=== PATIENT | female | born 1960 | race Two or more races ===

== ENCOUNTER → 2024-07-10 | Outpatient (CLI) | payer MEDICARE, MEDICAID, SELFPAY ==
--- NOTE | 2024-07-10 15:58 | XR_ITS ---
Examination: Duplex scan of the lower extremity, unilateral left Date and time of exam: July 10, 2024 1604 hours INDICATIONS: Left leg foot swelling and pain beginning 4 days ago Technique: Duplex scan of the extremity veins using B-mode/grayscale imaging and Doppler spectral analysis and color flow Attention is directed to internal echogenicity, compression and augmentation involving these veins, color flow assessment, spectral analysis Findings: Major deep venous structures in the extremity demonstrate normal course and caliber. There is no evidence of deep vein thrombosis. Normal color flow and spectral analysis Impression: Negative for DVT..
== END | disposition home or self-care (01) ==
LOC: SDIM 15:46
PROVIDERS: PCP Physician Assistant; Referring Provider Physician Assistant; Visit Provider Physician Assistant
DX: R22.42 Localized swelling, mass and lump, left lower limb (principal)
CPT/HCPCS: 93971

== ENCOUNTER 2024-07-19 07:50 | Emergency (ER) | payer MEDICARE, MEDICAID, SELFPAY ==
--- NOTE | 2024-07-19 08:04 | PD.EDANKLE ---
Lower Extremity Injury RME/HPI General Chief Complaint: Ankle/Foot Injury Stated Complaint: Swollen left foot X 10 days Time Seen by Provider: 07/19/24 08:03 Source: patient Arrival date/time: 07/19/24 07:50 63-year-old female with a history of type 2 diabetes, presents to the emergency room with a chief complaint of swelling to the left foot x 10 days. Mode of arrival: ambulatory Limitations: no limitations Related Data Home Medications ?Medication ?Instructions ?Recorded ?Confirmed allopurinol 100 mg tablet 100 mg PO BID 05/15/20 05/15/20 gabapentin 600 mg tablet 600 mg PO BID 05/15/20 05/15/20 insulin glargine 100 unit/mL (3 50 unit subcut BID 05/15/20 05/15/20 mL) subcutaneous pen (Basaglar KwikPen U-100 Insulin) meclizine 25 mg tablet 25 mg PO BID PRN Dizziness 05/15/20 05/15/20 metformin 1,000 mg tablet 1,000 mg PO BID 05/15/20 05/15/20 Previous Rx's ?Medication ?Instructions ?Recorded acetaminophen 325 mg tablet (Mapap 650 mg (2 x 325 mg) PO Q6H PRN 05/16/20 (acetaminophen)) Fever >101.5 #30 tabs dexamethasone 6 mg tablet 6 mg PO QDAY #8 tabs 05/16/20 promethazine-DM 6.25 mg-15 mg/5 mL 5 ml PO Q4HR PRN Cough #300 mL 05/16/20 oral syrup sulfamethoxazole 800 1 tab PO BID #14 tabs 07/19/24 mg-trimethoprim 160 mg tablet (Bactrim DS) Allergies Allergy/AdvReac Type Severity Reaction Status Date / Time No Known Allergies Allergy Verified 07/19/24 07:55 Review of Systems Review of Systems Systems Reviewed: All systems reviewed, normal except as documented Constitutional Constitutional: Reports system reviewed and no additional complaints, except as documented, Denies fatigue, Denies fever(s), Denies headache(s) and Denies weakness Eyes Eyes: Reports system reviewed and no additional complaints, except as documented, Denies blurry vision and Denies change in vision ENT Ears, Nose, Mouth, and Throat: Reports system reviewed and no additional complaints, except as documented, Denies otalgia, Denies headache(s), Denies nasal congestion, Denies throat swelling and Denies vertigo Cardiovascular Cardiovascular: Reports system reviewed and no additional complaints, except as documented, Denies chest pain, Denies dyspnea and Denies dyspnea on exertion Respiratory Respiratory: Reports system reviewed and no additional complaints, except as documented, Denies chest congestion, Denies cough, Denies dyspnea, Denies dyspnea on exertion and Denies wheezing Gastrointestinal Gastrointestinal: Reports system reviewed and no additional complaints, except as documented, Denies abdominal pain, Denies cramping, Denies nausea and Denies vomiting Genitourinary Genitourinary: Reports system reviewed and no additional complaints, except as documented Musculoskeletal Musculoskeletal: Reports system reviewed and no additional complaints, except as documented and Denies back pain Integumentary/Breasts Skin/Breast: Reports system reviewed and no additional complaints, except as documented and Reports wounds (Swelling to the left foot) Neurologic Neurologic: Reports system reviewed and no additional complaints, except as documented, Denies confusion, Denies headache(s), Denies lack of coordination, Denies vertigo and Denies weakness Psychiatric Psychiatric: Reports system reviewed and no additional complaints, except as documented, Denies anxiety, Denies confusion, Denies depression, Denies paranoia, Denies suicidal ideation and Denies tactile hallucinations Endocrine Endocrine: Reports system reviewed and no additional complaints, except as documented and Denies fatigue Hematologic/Lymphatic Hematologic/Lymphatic: Reports system reviewed and no additional complaints, except as documented and Denies lymphadenopathy Allergic/Immunologic Allergic/Immunologic: Reports system reviewed and no additional complaints, except as documented, Denies throat swelling, Denies urticaria and Denies wheezing Past Medical History Past Medical History NEUROLOGIC: Negative Neurological Disorders or Seizures CARDIAC: Positive Cardiac Disorders, Hypercholesterolemia and Hypertension; Negative Congestive Heart Failure or Edema RESPIRATORY: Negative Chronic Obstructive Pulmonary Disease (COPD) GASTROINTESTINAL: Positive Gastrointestinal Disorders, Gastroesophageal Reflux Disease and Obesity GENITOURINARY: Negative Genitourinary Disorders or Renal Disease REPRODUCTIVE: Positive Endometriosis and Previous Pregnancies MUSCULOSKELETAL: Positive Musculoskeletal Disorders, Arthritis and Gout ENDOCRINE: Positive Endocrine Disorders and Diabetes Mellitus Type 2; Negative Diabetes Mellitus Type 1 or Hypothyroidism HEMATOLOGIC: Positive Anemia; Negative Blood Disorders or Clotting Problems OTHER HISTORY: Positive Shingles and Blood Transfusions; Negative Hospitalization, Autoimmune Disease, Falls, Blood Transfusion Reaction, Anesthesia Reactions or Cancer Family History FAMILY HISTORY: Negative Family Psychiatric Problems, Family Respiratory Disorders, Family Cardiac Disorders, Family Gastrointestinal Problems, Family Cancer, Family Surgery or Family Anesthesia Reaction Social History SMOKING STATUS: Never smoker SUBSTANCE USE: does not use ED Exam General Limitations: Present no limitations General appearance: Present alert and in no apparent distress Head Head exam: Present atraumatic Eye Eye exam: Present normal appearance, PERRL and EOMI ENT ENT exam: Present normal exam, normal oropharynx and mucous membranes moist Neck Neck exam: Present normal inspection, full ROM and trachea midline Chest Chest inspection: Present normal inspection and symmetric chest wall rise Respiratory Respiratory exam: Present normal lung sounds bilaterally Cardiovascular Cardiovascular exam: Present regular rate, normal rhythm and normal heart sounds Abdominal Exam Abdominal exam: Present soft and normal bowel sounds Extremities Exam Extremities exam: Present normal inspection and full ROM Expanded Lower Extremity Exam Hip/Pelvis exam: Present normal inspection Upper leg exam: Present normal inspection Knee exam: Present normal inspection Lower leg exam: Present normal inspection Ankle exam: Present swelling; Absent tenderness or erythema Ankle image:  1. Swelling to the left ankle foot area. There is no erythema there are no signs of any diabetic ulcers there is no wounds. Back Exam Back exam: Present normal inspection and full ROM Neurological Exam Neurological exam: Present alert, oriented X3 and CN II-XII intact Psychiatric Psychiatric exam: Present normal affect and normal mood Skin Skin exam: Present warm, dry, intact and normal color Course Quality Measures none Vital Signs Vital signs: Vital Signs Temperature 97.9 F 07/19/24 08:08 Pulse Rate 82 07/19/24 08:08 Respiratory Rate 19 07/19/24 08:08 Blood Pressure 154/82 H 07/19/24 08:08 Pulse Oximetry (%) 96 07/19/24 08:08 Oxygen Delivery Method Room Air 07/19/24 08:08 Extremity Injury, Lower MDM Narrative MDM Narrative:: 63-year-old female with a history of type 2 diabetes, presents to the emergency room with a chief complaint of swelling to the left foot x 10 days. Patient is hemodynamically stable and in no apparent distress. The patient is afebrile she is not tachycardic and not tachypneic Physical examination shows swelling to the left foot. There is no diabetic ulcers there is no wound there is no erythema and there is no warmth to the touch. The swelling is localized to the ankle area patient denies any trauma or any tenderness to the area. Patient states this has been going on for the last 10 days. Patient states that the swelling has not gotten worse or better in the last 10 days. Patient was seen by her primary care provider put on Keflex and patient states there has not been any improvement or worsening of her symptoms. I looked in between each digit in each toe and there is no wound or any signs of ulcers. The swelling is only to the left ankle the right ankle has no swelling or no complications. I switched her antibiotic to Bactrim. I gave the patient strict return precautions for repeat evaluation by either her primary care provider or here in the emergency room in 48-72 hours. Patient was educated return to the emergency room for any evidence of worsening signs or symptoms Patient data External records reviewed:: [facility] previous records Clinical information provided by:: patient Social determinants that could affect healthcare access:: none Patient has the following chronic illnesses:: No chronic illness How is presenting disease/condition affected by chronic disease/condition?: no chronic disease Evaluation data The following diagnostics were reviewed and interpreted by me:: lab results and radiology exam(s) Lab and/or radiology exams considered but not ordered:: Labs and radiology exams considered and ordered Interpretation Summary: N/A Medications / Prescriptions Medications or Prescriptions considered but not ordered:: Rx given Medication administrations:: Rx given Consultations Consultation(s) initiated? (list below): No Diagnosis Extremity Injury, Lower Differential Diagnosis: other (Cellulitis/diabetic ulcer/ankle sprain) Most likely diagnosis given after review of the tests above:: Cellulitis Admission Indicated Admission indicated?: not indicated Admission Request Was there a request for admission?: No Disposition Plan Disposition Plan: Discharge Discharge Attestation Discharge Attestation: The patient and all family members were given an opportunity to ask questions and understood the discharge instructions. Discharge instructions specifically effects, indications for sooner follow up or return to the emergency department, and the expected course of current diagnosis. Patient condition: Stable Discharge Plan Plan Patient Disposition: HOME (Self Care) Prescriptions/Referrals Prescriptions/Med Rec: New sulfamethoxazole-trimethoprim [Bactrim DS] 800-160 mg tablet 1 tab PO BID Qty: 14 0RF No Action gabapentin 600 mg Tablet 600 mg PO BID allopurinol 100 mg Tablet 100 mg PO BID meclizine 25 mg Tablet 25 mg PO BID PRN (Reason: Dizziness) metformin 1,000 mg Tablet 1,000 mg PO BID Janis Turcios U-100 Insulin 100 unit/mL (3 mL) Insulin Pen 50 unit SUBCUT BID promethazine-DM 6.25-15 mg/5 mL Syrup 5 ml PO Q4HR PRN (Reason: Cough) Qty: 300 0RF acetaminophen [Mapap (acetaminophen)] 325 mg Tablet 650 mg PO Q6H PRN (Reason: Fever >101.5) Qty: 30 0RF dexamethasone 6 mg tablet 6 mg PO QDAY Qty: 8 0RF Problem List Clinical Impression: Cellulitis of foot, left Patient/Caregiver Discharge Instructions Education Materials: Discharge Instructions for Cellulitis, ED Cellulitis Additional Instructions: Please follow-up with your primary care provider or return to the emergency room for reevaluation in the next 48 to 72 hours. I changed her antibiotics to a stronger medication to help deal with your cellulitis of your foot. For any evidence of worsening signs or symptoms please return to the emergency room immediately Print Language: Mohawk Stand Alone Forms: Jennifer Award Info., Patient Portal Info Letter PA/[employer] Supervising Physician PA/MARY Supervising Physician: Dr. Salazar
[2024-07-19 08:08] VITALS: BP 154/82; PULSE 82; RESP 19; TEMP 36.6; O2SAT 96; BMI 37.4
== END 2024-07-19 08:17 | disposition home or self-care (01) ==
LOC: SERX 08:29
PROVIDERS: Emergency Provider Emergency Medicine; PCP Physician Assistant
DX: L03.116 Cellulitis of left lower limb (principal); E11.9 Type 2 diabetes mellitus without complications; I10 Essential (primary) hypertension
CPT/HCPCS: 99281

== ENCOUNTER 2024-07-29 11:47 | Emergency (ER) | payer MEDICARE, MEDICAID, SELFPAY ==
[2024-07-29 11:48] VITALS: BMI 37.8
--- NOTE | 2024-07-29 12:08 | XR_ITS ---
Examination: Knee, left , 3 views Technique: Knee AP, lateral, oblique 3 views Date and time of exam: July 29, 2024 1216 hrs. Indications: Patient fell 3 days ago with injury to the knee, knee pain Findings: Significant osteopenia Moderate knee effusion Suspicious for nondisplaced fracture inferior third of the patella Impression: Recommend CT scan of the knee follow-up to confirm nondisplaced fracture of the patellar
[2024-07-29 12:09] VITALS: BP 137/80; PULSE 88; RESP 19; TEMP 36.9; O2SAT 96
--- NOTE | 2024-07-29 12:54 | XR_ITS ---
Examination: CT left knee, without contrast. 2-D sagittal reconstructions. 2-D coronal reconstructions. 3-D reconstructions. Date and time of exam:July 29, 2024 1305 hrs. Indications: Patient fell 3 days ago with injury to the knee, knee pain CTDI: vol (mGy):10.2 DLP: (mGycm):273 Technique: Multiple 1.25 mm axial sections of the left knee without intravenous contrast have been obtained. 2-D sagittal and coronal reconstructions have been obtained. 3-D reconstructions have been obtained. Low dose protocols were performed. One or more of the following dose reduction techniques were used; automated exposure control, adjustment of the mA and/or KV according to patient size, use of iterative reconstruction technique. Findings: Distal femur femoral condyles intact Acute fractures inferior third of the patella are confirmed, for instance axial image 42, without significant displacement Tibia and fibula visualized appear intact Mild blood in the joint space Impression: Comminuted fractures inferior third of the patella without significant displacement
--- NOTE | 2024-07-29 13:45 | PD.EDLOWEX ---
Lower Extremity Injury RME/HPI General Chief Complaint: Extremity Injury, Lower Stated Complaint: Left knee pain after GLF this morning Time Seen by Provider: 07/29/24 12:55 Source: patient Arrival date/time: 07/29/24 11:47 63-year-old female with a history of type 2 diabetes presents to the emergency room with a chief complaint of left knee pain after a ground-level fall that occurred this morning. Mode of arrival: ambulatory Limitations: no limitations Related Data Home Medications ?Medication ?Instructions ?Recorded ?Confirmed allopurinol 100 mg tablet 100 mg PO BID 05/15/20 05/15/20 gabapentin 600 mg tablet 600 mg PO BID 05/15/20 05/15/20 insulin glargine 100 unit/mL (3 50 unit subcut BID 05/15/20 05/15/20 mL) subcutaneous pen (Basaglar KwikPen U-100 Insulin) meclizine 25 mg tablet 25 mg PO BID PRN Dizziness 05/15/20 05/15/20 metformin 1,000 mg tablet 1,000 mg PO BID 05/15/20 05/15/20 Previous Rx's ?Medication ?Instructions ?Recorded acetaminophen 325 mg tablet (Mapap 650 mg (2 x 325 mg) PO Q6H PRN 05/16/20 (acetaminophen)) Fever >101.5 #30 tabs dexamethasone 6 mg tablet 6 mg PO QDAY #8 tabs 05/16/20 promethazine-DM 6.25 mg-15 mg/5 mL 5 ml PO Q4HR PRN Cough #300 mL 05/16/20 oral syrup sulfamethoxazole 800 1 tab PO BID #14 tabs 07/19/24 mg-trimethoprim 160 mg tablet (Bactrim DS) hydrocodone 5 mg-acetaminophen 325 1 tab PO BID PRN pain #10 tabs 07/29/24 mg tablet Allergies Allergy/AdvReac Type Severity Reaction Status Date / Time No Known Allergies Allergy Verified 07/19/24 07:55 Review of Systems Review of Systems Systems Reviewed: All systems reviewed, normal except as documented Constitutional Constitutional: Reports system reviewed and no additional complaints, except as documented, Denies fatigue, Denies fever(s), Denies headache(s) and Denies weakness Eyes Eyes: Reports system reviewed and no additional complaints, except as documented, Denies blurry vision and Denies change in vision ENT Ears, Nose, Mouth, and Throat: Reports system reviewed and no additional complaints, except as documented, Denies otalgia, Denies headache(s), Denies nasal congestion, Denies throat swelling and Denies vertigo Cardiovascular Cardiovascular: Reports system reviewed and no additional complaints, except as documented, Denies chest pain, Denies dyspnea and Denies dyspnea on exertion Respiratory Respiratory: Reports system reviewed and no additional complaints, except as documented, Denies chest congestion, Denies cough, Denies dyspnea, Denies dyspnea on exertion and Denies wheezing Gastrointestinal Gastrointestinal: Reports system reviewed and no additional complaints, except as documented, Denies abdominal pain, Denies cramping, Denies nausea and Denies vomiting Genitourinary Genitourinary: Reports system reviewed and no additional complaints, except as documented Musculoskeletal Musculoskeletal: Reports system reviewed and no additional complaints, except as documented and Denies back pain Integumentary/Breasts Skin/Breast: Reports system reviewed and no additional complaints, except as documented and Denies wounds Neurologic Neurologic: Reports system reviewed and no additional complaints, except as documented, Denies confusion, Denies headache(s), Denies lack of coordination, Denies vertigo and Denies weakness Psychiatric Psychiatric: Reports system reviewed and no additional complaints, except as documented, Denies anxiety, Denies confusion, Denies depression, Denies paranoia, Denies suicidal ideation and Denies tactile hallucinations Endocrine Endocrine: Reports system reviewed and no additional complaints, except as documented and Denies fatigue Hematologic/Lymphatic Hematologic/Lymphatic: Reports system reviewed and no additional complaints, except as documented and Denies lymphadenopathy Allergic/Immunologic Allergic/Immunologic: Reports system reviewed and no additional complaints, except as documented, Denies throat swelling, Denies urticaria and Denies wheezing ED Exam General Limitations: Present no limitations Course Quality Measures none Orders Category Date Time Status Crutches .NOW Care 07/29/24 13:44 Completed Splint / Immobilizer STAT Care 07/29/24 13:[address] knee LT wo con Stat Exams 07/29/24 12:54 Completed XR knee LT 3V Stat Exams 07/29/24 12:08 Completed Vital Signs Vital signs: Vital Signs Temperature 98.4 F 07/29/24 12:09 Pulse Rate 88 07/29/24 12:09 Respiratory Rate 19 07/29/24 12:09 Blood Pressure 137/80 H 07/29/24 12:09 Pulse Oximetry (%) 96 07/29/24 12:09 Oxygen Delivery Method Room Air 07/29/24 12:09 Extremity Injury, Lower MDM Narrative MDM Narrative:: 63-year-old female with a history of type 2 diabetes presents to the emergency room with a chief complaint of left knee pain after a ground-level fall that occurred this morning. Patient is hemodynamically stable and in no apparent distress Physical examination shows tenderness and pain to the patient's left knee. There is an effusion but the patient is able to ambulate with mild pain X-ray of the left knee shows a possible fracture of the left patella. A CT of the left knee was completed and shows comminuted fractures inferior third of the patella with no significant displacement. Dr Harris was stopped the orthopedic on-call was consulted and the left knee immobilizer was placed on the patient. Dr Harris. Says that he will see the patient on 08/01/2024 at 10 AM. Patient was educated return to the emergency room for any evidence of worsening signs or symptoms Patient data External records reviewed:: [facility] previous records Clinical information provided by:: patient Social determinants that could affect healthcare access:: none Patient has the following chronic illnesses:: No chronic illness How is presenting disease/condition affected by chronic disease/condition?: no chronic disease Evaluation data The following diagnostics were reviewed and interpreted by me:: lab results and radiology exam(s) Lab and/or radiology exams considered but not ordered:: Labs and radiology exams considered and ordered Interpretation Summary: CT left knee-Findings: Distal femur femoral condyles intact Acute fractures inferior third of the patella are confirmed, for instance axial image 42, without significant displacement Tibia and fibula visualized appear intact Mild blood in the joint space Impression: Comminuted fractures inferior third of the patella without significant displacement Medications / Prescriptions Medications or Prescriptions considered but not ordered:: Medication given Medication administrations:: Rx given Consultations Consultation(s) initiated? (list below): Yes Consultation #1 (Physician, Specialty, Details): Dr Harris., Orthopedic, knee fracture Time: 10:00 Diagnosis Extremity Injury, Lower Differential Diagnosis: other (Knee fracture/knee sprain/knee dislocation) Most likely diagnosis given after review of the tests above:: Knee fracture Admission Indicated Admission indicated?: not indicated Admission Request Was there a request for admission?: No Disposition Plan Disposition Plan: Discharge Discharge Attestation Discharge Attestation: The patient and all family members were given an opportunity to ask questions and understood the discharge instructions. Discharge instructions specifically effects, indications for sooner follow up or return to the emergency department, and the expected course of current diagnosis. Patient condition: Stable Discharge Plan Plan Patient Disposition: HOME (Self Care) Disposition Comment: Stable Prescriptions/Referrals Prescriptions/Med Rec: New hydrocodone-acetaminophen 5-325 mg tablet 1 tab PO BID MDD 10mg PRN (Reason: pain) Qty: 10 0RF No Action gabapentin 600 mg Tablet 600 mg PO BID allopurinol 100 mg Tablet 100 mg PO BID meclizine 25 mg Tablet 25 mg PO BID PRN (Reason: Dizziness) metformin 1,000 mg Tablet 1,000 mg PO BID Basaglar KwikPen U-100 Insulin 100 unit/mL (3 mL) Insulin Pen 50 unit SUBCUT BID promethazine-DM 6.25-15 mg/5 mL Syrup 5 ml PO Q4HR PRN (Reason: Cough) Qty: 300 0RF acetaminophen [Mapap (acetaminophen)] 325 mg Tablet 650 mg PO Q6H PRN (Reason: Fever >101.5) Qty: 30 0RF dexamethasone 6 mg tablet 6 mg PO QDAY Qty: 8 0RF sulfamethoxazole-trimethoprim [Bactrim DS] 800-160 mg tablet 1 tab PO BID Qty: 14 0RF Referrals: Cisco Gaona PA-C [Primary Care Provider] - In 1 week Alfie Harris MD [Physician] - 08/01/24 10:00 am Problem List Clinical Impression: Closed fracture of left patella Patient/Caregiver Discharge Instructions Education Materials: ED Fracture, Knee, ED Patella Fracture Additional Instructions: Please follow-up with farm specialist on August 01 at [address] HARRIS and he is farm specialist that will help manage her fracture. Please keep your knee immobilizer in place into you are seen and cleared by your farm specialist For any evidence of worsening signs or symptoms return to the emergency room immediately Print Language: Bel[place] Stand Alone Forms: Jennifer Award Info., Patient Portal Info Letter [place]/MARY Supervising Physician [place]/MARY Supervising Physician: Dr. Salazar
== END 2024-07-29 14:08 | disposition home or self-care (01) ==
PROVIDERS: Emergency Provider Emergency Medicine; PCP Physician Assistant
DX: S82.002A Unspecified fracture of left patella, initial encounter for closed fracture (principal); E11.9 Type 2 diabetes mellitus without complications; W18.30XA Fall on same level, unspecified, initial encounter
CPT/HCPCS: 73562; 73700; 99284

== ENCOUNTER → 2024-09-03 | Outpatient (CLI) | payer MEDICARE, MEDICAID, SELFPAY ==
--- NOTE | 2024-09-03 10:06 | XR_ITS ---
Examination: Knee, left , 3 views Technique: Knee AP, lateral, oblique 3 views Date and time of exam: September 03, 2024 1119 hours INDICATIONS: Patient fell one month ago with injury to the knee, knee pain. FINDINGS: Severe osteopenia Radiolucency through the inferior patella Moderate knee effusion IMPRESSION: Fractures inferior patella with partial healing and satisfactory alignment
== END | disposition home or self-care (01) ==
PROVIDERS: PCP Physician Assistant; Referring Provider Orthopaedic Surgery; Visit Provider Orthopaedic Surgery
DX: S82.092A Other fracture of left patella, initial encounter for closed fracture (principal); W19.XXXA Unspecified fall, initial encounter
CPT/HCPCS: 73562

== ENCOUNTER 2024-09-19 10:10 | Inpatient (IN) | payer MEDICARE, MEDICAID, SELFPAY ==
[2024-09-19] VITALS (9 sets, daily range): BP systolic 135–180; BP diastolic 71–89; PULSE 76–113; RESP 15–20; TEMP 36.2–37.3; O2SAT 97–100; BMI 36.7
--- NOTE | 2024-09-19 11:14 | XR_ITS ---
Examination: Foot, left, 3 views Technique: AP, oblique, lateral views foot, 3 views Date and time of exam: September 19, 2024 1137 hours INDICATIONS: Patient fell 2 weeks ago redness swelling and pain involving the foot, diagnosis diabetes FINDINGS: Severe osteopenia Old ununited fracture at the base of the fifth metatarsal No acute fracture 10 mm plantar bony calcaneal spur Old chip fracture off the dorsal and plantar surface of the talus IMPRESSION: Severe osteopenia Old fractures as above No bee cortical bone destruction, however, MRI foot without contrast follow-up would best assess for early osteomyelitis
--- NOTE | 2024-09-19 11:15 | EDRME_ITS ---
Rapid Medical Screening Exam FORMERLY [facility], [facility] Arrival date/time: 09/19/24 10:10 63-year-old female with a history of type 2 diabetes, presents to the emergency room with a chief complaint of swelling and tenderness to her left foot x 2 weeks. Patient states the swelling and the pain has progressively gotten worse. She is on multiple antibiotics that have not worked and her primary care provider sent her to the emergency room. I have greeted and performed a focused initial assessment of this patient. A comprehensive ED assessment and evaluation of the patient, analysis of all test results, and completion of the medical decision making process will be conducted by additional ED providers. Chief Complaint: Extremity Injury, Lower Time Seen by Provider: 09/19/24 10:33 Vital signs: Vital Signs Temperature 97.2 F 09/19/24 11:10 Pulse Rate 84 09/19/24 11:10 Respiratory Rate 20 09/19/24 11:10 Blood Pressure 137/74 H 09/19/24 11:10 Pulse Oximetry (%) 98 09/19/24 11:10 Oxygen Delivery Method Room Air 09/19/24 11:10 Vital signs reviewed by provider: Yes
[2024-09-19 11:53] LABS: Lactate (Lactic Acid) 1.2 mMol/L (0.4-2.0)
[2024-09-19 11:54] LABS: Basophils % (Auto) 1 % (0-2.5); Eosinophils # (Auto) 0.2 Thou/mm3 (0.0-0.5); Eosinophils % (Auto) 3 % (0-10); Hemoglobin 11.6 g/dL (12.0-16.0); Immature Granulocytes % (Auto) 0 % (0-0); Immature Granulocytes Auto 0.01 Thou/mm3 (0.00-0.00); Lymphocytes # (Auto) 2.1 Thou/mm3 (1.0-4.8); Lymphocytes % (Auto) 30 % (10-50); Mean Corpuscular HGB Conc 32.2 g/dl (31.0-37.0); Mean Corpuscular Hemoglobin 30.1 pg (25.0-35.0); Mean Corpuscular Volume 93 fL (80-100); Monocytes # (Auto) 0.5 Thou/mm3 (0.0-0.8); Monocytes % (Auto) 7 % (0-12); Neutrophils # (Auto) 4.4 Thou/mm3 (1.8-7.7); Neutrophils % (Auto) 60 % (37-80); Nucleated Red Blood Cell % 0 /100 WBC (0); Platelet Count 254 Thou/mm3 (140-440); RDW Standard Deviation 45.8 fL (36.4-46.3); Red Blood Count 3.86 Miln/mm3 (4.00-5.20); White Blood Count 7.3 Thou/mm3 (3.6-11.0)
[2024-09-19 12:25] LABS: Alanine Aminotransferase 22 U/L (10-49); Albumin, Serum 4.2 gm/dL (3.4-4.8); Albumin/Globulin Ratio 1.1 (1.2-2.2); Alkaline Phosphatase 213 U/L (46-116); Anion Gap 11 (7-16); Aspartate Amino Transferase 20 U/L (0-34); BUN/Creatinine Ratio 24 Ratio (12-20); Bilirubin,Total 0.3 mg/dL (0.3-1.2); Blood Urea Nitrogen 41 mg/dL (9-23); Calcium 9.2 mg/dL (8.3-10.6); Calcium (Corrected) 9.2 mg/dL (8.5-10.1); Carbon Dioxide 20.4 mMol/L (20.0-31.0); Chloride 112 mMol/L (98-107); Creatinine (Component) 1.7 mg/dL (0.6-1.3); Estimated Creatinine Clearance 38.8 mL/min (>60); Globulin 3.7 gm/dL (2.3-3.5); Glucose 172 mg/dL (74-106); Osmolality,Calculated 299 (275-295); Procalcitonin 0.12 ng/ml (0.0-0.49); Sodium 143 mMol/L (136-145); Total Protein 7.9 gm/dL (5.7-8.2); eGFR 34 See Note
[2024-09-19 12:33] LABS: Potassium 6.1 mMol/L (3.4-5.1)
[2024-09-19 12:38] LABS: Sed Rate (ESR) 76 mm/hr (0-30)
--- NOTE | 2024-09-19 13:25 | PD.EDLOWEX ---
Lower Extremity Injury RME/HPI General Chief Complaint: Extremity Injury, Lower Stated Complaint: LEFT FOOT PAIN [id number] Time Seen by Provider: 09/19/24 10:33 Arrival date/time: 09/19/24 10:10 Limitations: no limitations RME / HPI RME / HPI Narrative: 09/19/24 10:10 63-year-old female with a history of type 2 diabetes, presents to the emergency room with a chief complaint of swelling and tenderness to her left foot x 2 weeks. Patient states the swelling and the pain has progressively gotten worse. She is on multiple antibiotics that have not worked and her primary care provider sent her to the emergency room. I have greeted and performed a focused initial assessment of this patient. A comprehensive ED assessment and evaluation of the patient, analysis of all test results, and completion of the medical decision making process will be conducted by additional ED providers. DR. WELLINGTON MAIN ED EVALUATION: 63 year old female with history of diabetes presents to the ED for left ankle/foot swelling today. Patient reports she fell 3 days ago and since the fall has had pain with swelling. States the swelling has improved but pain persists and gradually worsening. Reportedly has consulted her PCP who advised she come to the ED for further evaluation/treatment. No new injuries or complaints. Related Data Home Medications ?Medication ?Instructions ?Recorded ?Confirmed allopurinol 100 mg tablet 100 mg PO BID 05/15/20 05/15/20 gabapentin 600 mg tablet 600 mg PO BID 05/15/20 05/15/20 insulin glargine 100 unit/mL (3 50 unit subcut BID 05/15/20 05/15/20 mL) subcutaneous pen (Basaglar KwikPen U-100 Insulin) meclizine 25 mg tablet 25 mg PO BID PRN Dizziness 05/15/20 05/15/20 metformin 1,000 mg tablet 1,000 mg PO BID 05/15/20 05/15/20 Previous Rx's ?Medication ?Instructions ?Recorded acetaminophen 325 mg tablet (Mapap 650 mg (2 x 325 mg) PO Q6H PRN 05/16/20 (acetaminophen)) Fever >101.5 #30 tabs dexamethasone 6 mg tablet 6 mg PO QDAY #8 tabs 05/16/20 promethazine-DM 6.25 mg-15 mg/5 mL 5 ml PO Q4HR PRN Cough #300 mL 05/16/20 oral syrup sulfamethoxazole 800 1 tab PO BID #14 tabs 07/19/24 mg-trimethoprim 160 mg tablet (Bactrim DS) hydrocodone 5 mg-acetaminophen 325 1 tab PO BID PRN pain #10 tabs 07/29/ mg tablet Allergies Allergy/AdvReac Type Severity Reaction Status Date / Time No Known Allergies Allergy Verified 09/19/24 10:14 Review of Systems Review of Systems Systems Reviewed: All systems reviewed, normal except as documented Past Medical History Past Medical History CARDIAC: Positive Cardiac Disorders, Hypercholesterolemia and Hypertension GASTROINTESTINAL: Positive Gastrointestinal Disorders, Gastroesophageal Reflux Disease and Obesity REPRODUCTIVE: Positive Endometriosis and Previous Pregnancies MUSCULOSKELETAL: Positive Musculoskeletal Disorders, Arthritis and Gout ENDOCRINE: Positive Endocrine Disorders and Diabetes Mellitus Type 2 HEMATOLOGIC: Positive Anemia OTHER HISTORY: Positive Shingles and Blood Transfusions Family History FAMILY HISTORY: Negative Family Psychiatric Problems, Family Respiratory Disorders, Family Cardiac Disorders, Family Gastrointestinal Problems, Family Cancer, Family Surgery or Family Anesthesia Reaction Social History SMOKING STATUS: Never smoker SUBSTANCE USE: does not use ED Exam General Limitations: Present no limitations General appearance: Present alert and in no apparent distress Head Head exam: Present atraumatic, normocephalic and normal inspection Eye Eye exam: Present normal appearance, PERRL and EOMI ENT ENT exam: Present normal exam, normal oropharynx and mucous membranes moist Neck Neck exam: Present normal inspection, full ROM and trachea midline Chest Chest inspection: Present normal inspection and symmetric chest wall rise Respiratory Respiratory exam: Present normal lung sounds bilaterally Cardiovascular Cardiovascular exam: Present regular rate, normal rhythm and normal heart sounds Abdominal Exam Abdominal exam: Present soft and normal bowel sounds Extremities Exam Extremities exam: Present full ROM and other (There is swelling to the lateral aspect and part of the dorsum of left foot. ) Back Exam Back exam: Present normal inspection and full ROM Neurological Exam Neurological exam: Present alert, oriented X3 and CN II-XII intact Psychiatric Psychiatric exam: Present normal affect and normal mood Skin Skin exam: Present warm, dry, intact and normal color Course Quality Measures none Orders Category Date Time Status XR foot comp LT min 3V Stat Exams 09/19/24 11:14 Completed BMP [Basic Metabolic Panel] Stat Lab 09/19/24 15:45 Completed Blood Culture (Lab) Stat Lab 09/19/24 11:30 Received CBC Stat Lab 09/19/24 11:37 Completed CMP [Comprehensive Metabolic Panel] Stat Lab 09/19/24 11:37 Completed CRP [C-Reactive Protein] Stat Lab 09/19/24 11:37 Completed ESR [Sed Rate (ESR)] Stat Lab 09/19/24 11:37 Completed Lactate (Lactic Acid) Stat Lab 09/19/24 11:37 Completed Procalcitonin Stat Lab 09/19/24 11:37 Completed Dextrose 50% Syr [D50w Syringe Abboject] Med 09/19/24 13:24 Discontinued 50 ml IV X1 ONE Furosemide Inj [Lasix Inj] Med 09/19/24 14:59 Discontinued 80 mg IVP X1 ONE Insulin Regular Med 09/19/24 13:24 Discontinued 5 unit IV X1 ONE Patiromer Calcium [Veltassa] Med 09/19/24 13:30 Discontinued 8.4 gm PO X1 ONE Sodium Chloride 0.9% 1000 ml [Ns] 1,000 ml Med 09/19/24 14:59 Discontinued IV 999 mls/hr Vital Signs Vital signs: Vital Signs Temperature 97.2 F 09/19/24 11:10 Pulse Rate 84 09/19/24 11:10 Respiratory Rate 20 09/19/24 11:10 Blood Pressure 137/74 H 09/19/24 11:10 Pulse Oximetry (%) 98 09/19/24 11:10 Oxygen Delivery Method Room Air 09/19/24 11:10 Pulse ox is 98% on room air which is adequate. Extremity Injury, Lower MDM Narrative MDM Narrative:: Sandra Degroot am scribing for and in the presence of Dr. Wellington. Patient data External records reviewed:: [facility] previous records (I reviewed ED visit on 07/29/2024 for patella fracture. ) Clinical information provided by:: patient Social determinants that could affect healthcare access:: none Patient has the following chronic illnesses:: Diabetes How is presenting disease/condition affected by chronic disease/condition?: uneffected by Evaluation data The following diagnostics were reviewed and interpreted by me:: lab results and radiology exam(s) Lab and/or radiology exams considered but not ordered:: None Interpretation Summary: Ordering Physician: Kailash Chin Date of Service: 09/19/24 Procedure(s): XR foot comp LT min 3V Accession Number(s): [id number] cc: Kailash Chin; Cisco Gaona PA-C; Orestes Horton MD~ Examination: Foot, left, 3 views Technique: AP, oblique, lateral views foot, 3 views Date and time of exam: September 19, 2024 1137 hours INDICATIONS: Patient fell 2 weeks ago redness swelling and pain involving the foot, diagnosis diabetes FINDINGS: Severe osteopenia Old ununited fracture at the base of the fifth metatarsal No acute fracture 10 mm plantar bony calcaneal spur Old chip fracture off the dorsal and plantar surface of the talus IMPRESSION: Severe osteopenia Old fractures as above No bee cortical bone destruction, however, MRI foot without contrast follow-up would best assess for early osteomyelitis Dictated By: Orestes Horton MD Signed By: <Electronically signed by Orestes Horton MD in OV> 09/19/24 1148 Medications / Prescriptions Medications or Prescriptions considered but not ordered:: None Medication administrations:: Medication Administration History Discontinued Medications Dextrose (Dextrose 50%-Water Inj 50 Ml Syringe) 50 ml IV X1 ONE Stop: 09/19/24 13:25 Last Admin: 09/19/24 14:03 Dose: 50 ml Documented By: TM Furosemide (Furosemide Inj 10 Mg/Ml 4ml Vial) 80 mg IVP X1 ONE Stop: 09/19/24 15:00 Last Admin: 09/19/24 15:54 Dose: 80 mg Documented By: LEOBARDO Sodium Chloride (Ns) 1,000 mls @ 999 mls/hr IV .Q1H1M ONE Stop: 09/19/24 15:59 Last Admin: 09/19/24 15:54 Dose: 999 mls/hr Documented By: LEOBARDO Insulin Human Regular (Insulin Hum Regular 1 Unit/0.01 Ml (Per Unit)) 5 unit IV X1 ONE Stop: 09/19/24 13:25 Last Admin: 09/19/24 14:04 Dose: 5 unit Documented By: TM Co-signed By: VG Patiromer (Patiromer Calcium 8.4 Gm Packet (Non-Form)) 8.4 gm PO X1 ONE Stop: 09/19/24 13:31 Last Admin: 09/19/24 14:03 Dose: 8.4 gm Documented By: TM See above Consultations Consultation(s) initiated? (list below): Yes Consultation #1 (Physician, Specialty, Details): I spoke with resident Dr. Tanousian regarding admission. Discussed patients PMHx, HPI, ED course, exam findings, labs, and radiology results. The hospitalist agree to accept the patient for admission. Time: 18:00 Diagnosis Extremity Injury, Lower Differential Diagnosis: ankle sprain and strain, ankle fracture and other (cellulitis ) Most likely diagnosis given after review of the tests above:: Hematoma left ankle Hyperkalemia chronic kidney insufficiency Admission Indicated Admission indicated?: not indicated Admission Request Was there a request for admission?: Yes Admission Attestation Admission request attestation: Discussed case with [] from Hospitalist service regarding admission. Discussed patients ED course, exam findings, labs, and radiology results. The Hospitalist [agrees,declines] to accept the patient for admission. Disposition Plan Disposition Plan: Admit Discharge Plan Plan Patient Disposition: Admit Acute Care w/in Hospital Prescriptions/Referrals Prescriptions/Med Rec: No Action gabapentin 600 mg Tablet 600 mg PO BID allopurinol 100 mg Tablet 100 mg PO BID meclizine 25 mg Tablet 25 mg PO BID PRN (Reason: Dizziness) metformin 1,000 mg Tablet 1,000 mg PO BID Basaglar AminataikPen U-100 Insulin 100 unit/mL (3 mL) Insulin Pen 50 unit SUBCUT BID promethazine-DM 6.25-15 mg/5 mL Syrup 5 ml PO Q4HR PRN (Reason: Cough) Qty: 300 0RF acetaminophen [Mapap (acetaminophen)] 325 mg Tablet 650 mg PO Q6H PRN (Reason: Fever >101.5) Qty: 30 0RF dexamethasone 6 mg tablet 6 mg PO QDAY Qty: 8 0RF sulfamethoxazole-trimethoprim [Bactrim DS] 800-160 mg tablet 1 tab PO BID Qty: 14 0RF hydrocodone-acetaminophen 5-325 mg tablet 1 tab PO BID MDD 10mg PRN (Reason: pain) Qty: 10 0RF Referrals: Cisco Gaona PA-C [Primary Care Provider] - In 1 week Problem List Clinical Impression: Hematoma of left ankle, Hyperkalemia, Chronic kidney insufficiency Patient/Caregiver Discharge Instructions Print Language: Kyrgyz Stand Alone Forms: Jennifer Award Info., Patient Portal Info Letter
[2024-09-19] MEDS: DEXTROSE 50%-WATER INJ 50 ML SYRINGE IV ×2 (14:03→20:18)
[2024-09-19] MEDS: PATIROMER CALCIUM 8.4 GM PACKET (NON-FORM) PO (14:03)
[2024-09-19] MEDS: INSULIN HUM REGULAR 1 UNIT/0.01 ML (PER UNIT) 5 UNIT IV (14:04)
[2024-09-19] MEDS: FUROSEMIDE INJ 10 MG/ML 4ML VIAL 80 MG IVP (15:54)
[2024-09-19] MEDS: SODIUM CHLORIDE 0.9% 1000 ML 1,000 ML 999 ML IV (15:54)
[2024-09-19 16:28] LABS: Anion Gap 8 (7-16); BUN/Creatinine Ratio 26 Ratio (12-20); Blood Urea Nitrogen 39 mg/dL (9-23); Calcium 9.3 mg/dL (8.3-10.6); Carbon Dioxide 22.1 mMol/L (20.0-31.0); Chloride 111 mMol/L (98-107); Creatinine (Component) 1.5 mg/dL (0.6-1.3); Glucose 107 mg/dL (74-106); Osmolality,Calculated 290 (275-295); Sodium 141 mMol/L (136-145); eGFR 39 See Note
[2024-09-19] MEDS: SOD POLYSTYRENE SULFON SUSP 15 GM/60 ML BTL 30 GM PO (20:17)
[2024-09-19] MEDS: ENOXAPARIN SOD INJ 40 MG/0.4 ML SYRINGE SC (20:18)
[2024-09-19] MEDS: GABAPENTIN 100 MG CAPSULE 200 MG PO (20:18)
[2024-09-19] MEDS: SODIUM CHLORIDE 0.9% 1000 ML 1,000 ML 85 ML IV (20:19)
[2024-09-19] MEDS: INSULIN HUM REGULAR 1 UNIT/0.01 ML (PER UNIT) 5 UNIT SC (20:19)
--- NOTE | 2024-09-19 20:20 | PD.RESHP ---
Documentation for date of: 09/19/24 HPI History of Present Illness Chief complaint: left ankle pain History of present illness: Jacqui Guadarrama is 63 yr F with PMH of insulin-dependent type 2 diabetes, diabetic neuropathy, vertigo, hypertension, hyperlipidemia presenting to ED due to left ankle pain since past 2 to 3 months. Patient denies any falls but twisted ankle while climbing up the stairs. She saw her PCP and started patient on antibiotics which she has been taking since that time. Ultrasound lower extremity outpatient was negative for DVT. Patient stated that she is waiting to see a outside sales account manager. Pain is 6-7/10, tender to palpation, able to bear little bit of weight with support of walker, has not tried any [id number] pain medication. Has just used ice packets for pain and swelling. She also has history of left knee fracture approximately 1-2 months ago. Stated that she has seen ortho here in town and had no surgery or interventions. Patient denies any chest pain, shortness of breath, dizzines, good appetite. In ED, vital stable.CBC unremarkable, CMP significant for hyperkalemia potassium 6.1, BUN 41, creatinine 1.7 (baseline appearing around 0.8. Repeat creatinine improved to 1.5 after fluids), glucose 172, no leukocytosis, no elevated lactic acid. X-ray foot shows severe osteopenia, old fractures at base of fifth metatarsal, no cortical bone destruction, old chip fracture off dorsal plantar surface of talus. She was given dextrose 50, patiromer, insulin regular 10 units, NS bolus while in ED. Dr Fernandez consulted for left ankle pain and old fractures. Patient admitted for management of hyperkalemia, AMADO on CKD, and left ankle pain. PMH: As noted above PSH: Denied any surgeries Family Hx: Mother and father , extensive diabetes history and multiple family members. No cancer history Social: Lives in [place] or with family, unemployed, denies drinking or smoking Meds: Insulin 16 units glargine, sliding scale 3 times daily, gabapentin, metoprolol, meclizine, atorvastatin (med rec pending) Allergies: NKDA Review of Systems Review of Systems Systems Reviewed: All systems reviewed, normal except as documented Exam Vital Signs Temp Pulse Resp BP Pulse Ox O2 Del Method 99.1 F 87 18 151/82 H 97 Room Air 09/19/24 19:56 09/19/24 19:56 09/19/24 19:56 09/19/24 19:56 09/19/24 19:56 09/19/24 19:56 Narrative Exam General: Middle-age female, no acute distress, cooperative HEENT: NCAT, No JVD noted. Mucosa moist. Pupils are equal and reactive to light bilaterally Cardiovascular: Normal S1 and S2. Regular rate and rhythm. Respiratory: Lungs are clear to auscultation bilaterally. No wheezing or crackles heard. Abdomen: Soft, nontender, not distended, normal bowel sounds. Skin: Warm to touch, dry, no rashes noted Musculoskeletal: No gross injuries. Able to move all 4 extremities. +1 pitting edema, left ankle swollen, tender to touch more on surface and lateral side. Neuro: Alert and oriented x3. No focal neuro deficits. Psych: Normal affect and mood Results: Labs 09/19/24 11:37 09/19/24 15:45 Labs: Short CBC 09/19/24 Range/Units 11:37 WBC 7.3 (3.6-11.0) Thou/mm3 Hgb 11.6 L (12.0-16.0) g/dL Hct 36.0 (36.0-46.0) % Plt Count 254 (140-440) Thou/mm3 BMP 09/19/24 09/19/24 11:37 15:45 Sodium 143 141 Potassium 6.1 H* 6.0 H Chloride 112 H 111 H Carbon Dioxide 20.4 22.1 BUN 41 H 39 H Creatinine 1.7 H 1.5 H Glucose 172 H 107 H D Calcium 9.2 9.3 Liver Function 09/19/24 Range/Units 11:37 Total Bilirubin 0.3 (0.3-1.2) mg/dL AST 20 (0-34) U/L ALT 22 (10-49) U/L Alkaline Phosphatase 213 H (46-116) U/L Albumin 4.2 (3.4-4.8) gm/dL Quality Measures Quality Measures none Medications Home Medications and Allergies Home Medications ?Medication ?Instructions ?Recorded ?Confirmed ?Type allopurinol 100 mg tablet 100 mg PO BID 05/15/20 05/15/20 History gabapentin 600 mg tablet 600 mg PO BID 05/15/20 05/15/20 History insulin glargine 100 unit/mL (3 50 unit subcut BID 05/15/20 05/15/20 History mL) subcutaneous pen (Basaglar KwikPen U-100 Insulin) meclizine 25 mg tablet 25 mg PO BID PRN Dizziness 05/15/20 05/15/20 History metformin 1,000 mg tablet 1,000 mg PO BID 05/15/20 05/15/20 History Allergies Allergy/AdvReac Type Severity Reaction Status Date / Time No Known Allergies Allergy Verified 09/19/24 10:14 Visit Medications Acetaminophen (Acetaminophen 325 Mg Tablet) 650 mg PO Q6H PRN PRN Reason: Fever >100.3 or pain 1-3 Stop: 10/19/24 19:42 Atorvastatin Calcium (Atorvastatin Calcium 10 Mg Tablet) 20 mg PO HS [facility] Stop: 10/19/24 20:59 Dextrose (Dextrose 50%-Water Inj 50 Ml Syringe) 25 ml IV Q15MIN PRN PRN Reason: BG 50-70 responsive npo pt Stop: 10/19/24 19:53 Dextrose (Dextrose 50%-Water Inj 50 Ml Syringe) 50 ml IV Q15MIN PRN PRN Reason: BG <50 OR BG <70 & pt unresponsive Stop: 10/19/24 19:53 Enoxaparin Sodium (Enoxaparin Sod Inj 40 Mg/0.4 Ml Syringe) 40 mg SC QDAY [facility] Stop: 10/03/24 19:59 Gabapentin (Gabapentin 100 Mg Capsule) 200 mg PO BID [facility] Stop: 10/19/24 19:59 Glucagon (Glucagon Inj 1 Mg Vial) 1 mg IM Q15MIN PRN PRN Reason: BG <70, and no IV access Sodium Chloride (Ns) 1,000 mls @ 85 mls/hr IV .[id number] [facility] Stop: 10/19/24 19:44 Insulin Glargine (Insulin Glargine (Lantus) 5 Unit/0.05 Ml (Per 5 Units)) 40 unit SC HS [facility] Stop: 10/19/24 20:59 Insulin Human Lispro (Insulin Lispro (Admelog) 1 Unit/0.01 Ml Unit) 0 unit SC ACHS [facility]; Protocol Stop: 10/19/24 20:59 Meclizine HCl (Meclizine Hcl 25 Mg Tablet) 25 mg PO DAILY [facility] Stop: 10/20/24 08:59 Metoprolol Succinate (Metoprolol Succinate Xl 25 Mg Tabcr) 25 mg PO [facility] Stop: 10/19/24 20:59 Discontinued Medications Albuterol (Albuterol Rt 25 Mg/5 Ml Nebu) 10 mg INH X1 ONE Stop: 09/19/24 19:49 Dextrose (Dextrose 50%-Water Inj 50 Ml Syringe) 50 ml IV X1 ONE Stop: 09/19/24 13:25 Last Admin: 09/19/24 14:03 Dose: 50 ml Dextrose (Dextrose 50%-Water Inj 50 Ml Syringe) 50 ml IV X1 ONE Stop: 09/19/24 19:52 Furosemide (Furosemide Inj 10 Mg/Ml 4ml Vial) 80 mg IVP X1 ONE Stop: 09/19/24 15:00 Last Admin: 09/19/24 15:54 Dose: 80 mg Sodium Chloride (Ns) 1,000 mls @ 999 mls/hr IV .Q1H1M ONE Stop: 09/19/24 15:59 Last Infusion: 09/19/24 16:55 Dose: Infused Insulin Human Regular (Insulin Hum Regular 1 Unit/0.01 Ml (Per Unit)) 5 unit IV X1 ONE Stop: 09/19/24 13:25 Last Admin: 09/19/24 14:04 Dose: 5 unit Insulin Human Regular (Insulin Hum Regular 1 Unit/0.01 Ml (Per Unit)) 5 unit SC X1 ONE Stop: 09/19/24 19:44 Metoprolol Succinate (Metoprolol Succinate Xl 25 Mg Tabcr) 50 mg PO [facility] Stop: 10/19/24 19:59 Patiromer (Patiromer Calcium 8.4 Gm Packet (Non-Form)) 8.4 gm PO X1 ONE Stop: 09/19/24 13:31 Last Admin: 09/19/24 14:03 Dose: 8.4 gm Sodium Polystyrene Sulfonate (Sod Polystyrene Sulfon Susp 15 Gm/60 Ml Btl) 30 gm PO X1 ONE Stop: 09/19/24 19:52 Assessment & Plan Plan Jacqui Guadarrama is 63 yr F with PMH of insulin-dependent type 2 diabetes, diabetic neuropathy, vertigo, hypertension, hyperlipidemia presenting to ED due to left ankle pain since past 2 to 3 months. Patient denies any falls but twisted ankle while climbing up the stairs. Patient admitted for management of hyperkalemia, AMADO on CKD, and left ankle pain. #Hyperkalemia Potassium 6.1 on admission, given albuterol 10 mg, total of 10 units regular insulin, Kayexalate 30, D50 amp, 80 mg IV Lasix x 1, patiromer -EKG pending - Monitor for any ST changes -Kayaxalate -calcium gluc in ST changes -regular insulin 10unit x1 if not improving -daily CMP #AMADO on CKD creatinine 1.7 (baseline appearing around 0.8. Repeat creatinine improved to 1.5 after fluids), GFR 39. Patient endorses good oral intake. She sees box strapper in town but is unable to recall name. -maintenance fluids -avoid nephrotoxic agents -daily CMP #Left ankle pain Endorses pain since past 2-3 months. Has not been evaluated by orthopedics outpatient. Has not taken any OTC pain meds, mostly has been icing ankle. X-ray foot shows severe osteopenia, old fractures at base of fifth metatarsal, no cortical bone destruction, old chip fracture off dorsal plantar surface of talus. -Dr. Swanson consulted, appreciate recs -Tylenol PRN for pain -keep elevated, SHIRIN, ice #History of type 2 diabetes #Diabetic neuropathy On admission initial glucose 172. No A1c on file. Patient takes metformin, Jardiance, 60 units glargine for diabetes at home. -Held home medications -Bedside blood glucose checks ACHS -Insulin lispro sliding scale -Carb consistent low diet -A1c pending -started gabapentin 200BID #Hx HTN #Hx HLD #Hx Vertigo -metoprolol 25 mg daily -atorvastatin 20 mg daily -meclazine 25mg daily Health maintenance: Dispo: tele, hyperkalemia, foot pain FEN: low carb DVT prophylaxis: Lovenox CODE STATUS: DNR The patient's management plan was discussed with my attending physician Dr. Herrera. Annemarie Ferguson, PGY-1 Attending Provider Attestation/Addendum I attest that I was physically present for the evaluation, physical examination, lab and imaging review of the patient with the residents. I discussed the case with the residents and agree with the findings and plans of care as documented above. Please patient is a 63 years old female with past medical history of type 2 diabetes mellitus, diabetic neuropathy, vertigo, hypertension, hyperlipidemia who presented to the ED with complaint of left ankle pain since 2 to 3 months. Patient has been receiving out patient oral intake oral antibiotics outpatient, however swelling and pain has been improving but she continues to have throbbing pain and decided to visit the ED. In the ED, her vitals are stable. Lab results show potassium of 6.1, BUN/creatinine of 41/1.7, glucose 172. X-ray of the foot shows severe osteopenia, old fracture of fifth metatarsal, no cortical bone destruction, old chip fracture dorsal plantar surface of the talus. We will admit the patient for management of severe hyperkalemia. We will obtain EKG, start her on 10 units of regular insulin, amp of D50, patiromer, albuterol. We will follow-up with CMP level. We will obtain orthopedic consult for fractures around left ankle. We will also start her on IV hydration for AMADO on CKD. Started insulin regimen for diabetes. Resumed metoprolol, atorvastatin and meclizine for hypertension, hyperlipidemia and vertigo. Plan to discuss with orthopedics regarding the ankle x-ray finding before considering osteomyelitis. Katlyn Herrera MD
[2024-09-19] MEDS: INSULIN GLARGINE (Lantus) 5 UNIT/0.05 ML (PER 5 UNITS) 40 UNIT SC (21:10)
[2024-09-19] MEDS: METOPROLOL SUCCINATE XL 25 MG TABCR PO (21:10)
[2024-09-19] MEDS: ATORVASTATIN CALCIUM 10 MG TABLET 20 MG PO (21:10)
[2024-09-19] MEDS: INSULIN LISPRO (AdmeLOG) 1 UNIT/0.01 ML UNIT SC (21:10)
[2024-09-19] MEDS: ALBUTEROL RT 2.5 MG/3 ML NEBU 10 MG INH (21:43)
[2024-09-20] VITALS (10 sets, daily range): BP systolic 102–167; BP diastolic 70–90; PULSE 73–115; RESP 14–98; TEMP 36.1–36.7; O2SAT 94–99; BMI 36.8
[2024-09-20 05:56] LABS: Basophils # (Auto) 0.1 Thou/mm3 (0.0-0.2); Basophils % (Auto) 1 % (0-2.5); Eosinophils % (Auto) 1 % (0-10); Hematocrit 33.1 % (36.0-46.0); Hemoglobin 10.6 g/dL (12.0-16.0); Immature Granulocytes % (Auto) 0 % (0-0); Immature Granulocytes Auto 0.01 Thou/mm3 (0.00-0.00); Lymphocytes # (Auto) 1.7 Thou/mm3 (1.0-4.8); Lymphocytes % (Auto) 19 % (10-50); Mean Corpuscular Hemoglobin 29.6 pg (25.0-35.0); Mean Corpuscular Volume 93 fL (80-100); Monocytes # (Auto) 0.5 Thou/mm3 (0.0-0.8); Monocytes % (Auto) 6 % (0-12); Neutrophils # (Auto) 6.4 Thou/mm3 (1.8-7.7); Neutrophils % (Auto) 74 % (37-80); Nucleated Red Blood Cell % 0 /100 WBC (0); Platelet Count 204 Thou/mm3 (140-440); RDW Standard Deviation 45.5 fL (36.4-46.3); Red Blood Count 3.58 Miln/mm3 (4.00-5.20); White Blood Count 8.7 Thou/mm3 (3.6-11.0)
[2024-09-20 06:05] LABS: Glucose Estimated Average 166 mg/dL (80-131); Hemoglobin A1C 7.4 % Hgb (4.8-6.0)
[2024-09-20 06:34] LABS: Alanine Aminotransferase 18 U/L (10-49); Albumin, Serum 3.9 gm/dL (3.4-4.8); Albumin/Globulin Ratio 1.1 (1.2-2.2); Alkaline Phosphatase 195 U/L (46-116); Anion Gap 13 (7-16); Aspartate Amino Transferase 17 U/L (0-34); BUN/Creatinine Ratio 26 Ratio (12-20); Bilirubin,Total 0.3 mg/dL (0.3-1.2); Blood Urea Nitrogen 42 mg/dL (9-23); Calcium 8.7 mg/dL (8.3-10.6); Calcium (Corrected) 8.8 mg/dL (8.5-10.1); Carbon Dioxide 19.7 mMol/L (20.0-31.0); Cardiac Risk Estimate 4.7 RATIO (3.7-5.6); Chloride 109 mMol/L (98-107); Cholesterol 145 mg/dL (132-200); Creatinine (Component) 1.6 mg/dL (0.6-1.3); Estimated Creatinine Clearance 41.3 mL/min (>60); Globulin 3.6 gm/dL (2.3-3.5); Glucose 206 mg/dL (74-106); HDL Cholesterol 31 mg/dL (40-60); LDL Cholesterol,Calculated 81 mg/dL (0-130); Magnesium 1.8 mg/dL (1.6-2.6); Osmolality,Calculated 299 (275-295); Phosphorous 5.3 mg/dL (2.4-5.1); Potassium 4.9 mMol/L (3.4-5.1); Sodium 142 mMol/L (136-145); Thyroid Stimulating Hormone 2.11 uIU/mL (0.55-4.78); Total Protein 7.5 gm/dL (5.7-8.2); Triglycerides 163 mg/dL (30-150); eGFR 36 See Note
--- NOTE | 2024-09-20 09:01 | PC.SS ---
Follow up note: Nephrology consulting. MRI pending. Pt is on IV fluids.
[2024-09-20] MEDS: INSULIN LISPRO (AdmeLOG) 1 UNIT/0.01 ML UNIT SC ×2 (09:15→18:51)
[2024-09-20] MEDS: ENOXAPARIN SOD INJ 40 MG/0.4 ML SYRINGE SC (09:15)
[2024-09-20] MEDS: MECLIZINE HCL 25 MG TABLET PO (09:15)
[2024-09-20] MEDS: GABAPENTIN 100 MG CAPSULE 200 MG PO ×2 (09:15→20:41)
[2024-09-20] MEDS: SODIUM CHLORIDE 0.9% 1000 ML 1,000 ML 85 ML IV ×2 (09:16→21:37)
--- NOTE | 2024-09-20 09:43 | ESPR_ITS ---
<Statement entered by Joon Wright MD - 09/20/24 22:19> Patient was seen and examined at bedside. Patient reported that she has chronic kidney disease and she has been following up with Dr. Pollock here in [place]. Patient potassium level has improved significantly to 4.9 from 6.4. However his serum creatinine still mildly elevated at 1.6. On admission yesterday it was 1.7. In review of the patient's chart patient was noticed to have prescribed ibuprofen however she denied using that after she was instructed by her kidney doctor to not take any NSAIDs. There was suspicion by her primary care physician that she might have osteomyelitis, ESR and CRP was 74 and 2 respectively. Ankle x-ray did not show any left osteomyelitis. For that reason we ordered MRI to rule out osteomyelitis which came back negative for osteomyelitis however it showed plantar fasciitis, Achilles tendinosis, and possible reflex sympathetic dystrophy pattern. Will reach out to Dr. Fernandez for further recommendations. At this time we will continue to monitor her kidney functions as stable patient can be discharged. - Patient's plan and care discussed with my attending, Dr. Reuben Wright MD Internal Medicine PGY-2 Documentation for date of: 09/20/24 Subjective Subjective Interval history: Patient examined at bedside today. Says she is not experiencing much foot pain at this time. She denies having any fever or chills. She does endorse that she is able to bear weight on her ankle. She does say that she has gotten antibiotics for her left ankle before. She also says that her kidney doctor is Dr. Ann. She says that she has been taking ibuprofen on and on but has not been taking it as much recently. She denies having any history of osteomyelitis. She does say that she has broken bones in her left ankle before and foot as well in the past. She says she is in the middle of being referred to a dry color tester as well. Exam Vital Signs Temp Pulse Resp BP Pulse Ox O2 Del Method 97.0 F 95 18 155/85 H 99 Room Air 09/20/24 08:00 09/20/24 08:00 09/20/24 08:00 09/20/24 08:00 09/20/24 08:00 09/20/24 08:00 Narrative Exam General: AAOx3, NAD, obese female HEENT: Moist mucous membranes, conjunctiva clear, EOMI, PERRLA, Cardiovascular: S1, S2, radial pulses +2 bilat, RRR Pulmonary: CTAB bilat no cough, no wheezing GI: No tenderness to light or deep palpitation, no guarding, rigidity, rebound tenderness or distension Extremities: No presence of trace or pitting edema in lower extremities bilaterally, dorsalis pedis pulses +2 bilaterally MSK: L foot slight more warm to touch compared to right foot, no obvious ulceration or open wound at this time. 4/5 ROM of left foot. No rash present on left foot. Neuro: AAOx3, no focal motor or sensory deficits in the UE or LE bilat Psych: Good judgement, thought and behavior. Cooperative Objective Labs 09/21/24 05:12 09/21/24 05:12 Labs: Laboratory Results - last 24 hr 09/19/24 09/19/24 09/20/24 11:37 15:45 05:43 WBC 7.3 8.7 RBC 3.86 L 3.58 L Hgb 11.6 L 10.6 L Hct 36.0 33.1 L MCV 93 93 MCH 30.1 29.6 MCHC 32.2 32.0 RDW Std Deviation 45.8 45.5 Plt Count 254 204 D Neut % (Auto) 60 74 Lymph % (Auto) 30 19 [place] % (Auto) 7 6 Eos % (Auto) 3 1 Baso % (Auto) 1 1 Neut # (Auto) 4.4 6.4 Lymph # (Auto) 2.1 1.7 Gaston # (Auto) 0.5 0.5 Eos # (Auto) 0.2 0.0 Baso # (Auto) 0.0 0.1 Immature Gran # (Auto) 0.01 H 0.01 H Absolute Nucleated RBC 0.00 0.00 Immature Gran % 0 0 Nucleated RBC % 0 0 ESR 76 H Sodium 143 141 142 Potassium 6.1 H* 6.0 H 4.9 D Chloride 112 H 111 H 109 H Carbon Dioxide 20.4 22.1 19.7 L Anion Gap 11 8 13 BUN 41 H 39 H 42 H Creatinine 1.7 H 1.5 H 1.6 H Estim Creat Clear Calc 38.8 L 44.0 L 41.3 L eGFR 34 L 39 L 36 L BUN/Creatinine Ratio 24 H 26 H 26 H Glucose 172 H 107 H D [address] Glu mg/dL 166 H Hemoglobin A1c 7.4 H Calculated Osmolality 299 H 290 299 H Lactic Acid 1.2 Calcium 9.2 9.3 8.7 Corrected Calcium 9.2 8.8 Phosphorus 5.3 H Magnesium 1.8 Total Bilirubin 0.3 0.3 AST 20 17 ALT 22 18 Alkaline Phosphatase 213 H 195 H C-Reactive Prot, Quant 2.0 H Total Protein 7.9 7.5 Albumin 4.2 3.9 Globulin 3.7 H 3.6 H Albumin/Globulin Ratio 1.1 L 1.1 L Triglycerides 163 H Cholesterol 145 LDL Cholesterol, Calc 81 HDL Cholesterol 31 L Cholesterol/HDL Ratio 4.7 Procalcitonin 0.12 TSH 2.11 Quality Measures Quality Measures none Assessment & Plan Assessment Current Active Medications: Generic Name Dose Route Start Last Admin Trade Name Freq PRN Reason Stop Dose Admin Acetaminophen 650 mg 09/19/24 19:43 Acetaminophen 325 Mg Tablet PO 10/19/24 19:42 Q6H PRN Fever >100.3 or pain 1-3 Atorvastatin Calcium 20 mg 09/19/24 21:00 09/19/24 21:10 Atorvastatin Calcium 10 Mg Tablet PO 10/19/24 20:59 20 mg HS BRUNO Administration Dextrose 25 ml 09/19/24 19:54 Dextrose 50%-Water Inj 50 Ml Syringe IV 10/19/24 19:53 Q15MIN PRN BG 50-70 responsive npo pt Dextrose 50 ml 09/19/24 19:54 Dextrose 50%-Water Inj 50 Ml Syringe IV 10/19/24 19:53 Q15MIN PRN BG <50 OR BG <70 & pt unresponsive Enoxaparin Sodium 40 mg 09/19/24 20:00 09/20/24 09:15 Enoxaparin Sod Inj 40 Mg/0.4 Ml Syringe SC 10/03/24 19:59 40 mg QDAY BRUNO Administration Gabapentin 200 mg 09/19/24 20:00 09/20/24 09:15 Gabapentin 100 Mg Capsule PO 10/19/24 19:59 200 mg BID BRUNO Administration Glucagon 1 mg 09/19/24 19:54 Glucagon Inj 1 Mg Vial IM Q15MIN PRN BG <70, and no IV access Sodium Chloride 1,000 mls @ 85 mls/hr 09/19/24 19:45 09/20/24 09:16 Ns IV 10/19/24 19:44 85 mls/hr .[id number] BRUNO Administration Insulin Glargine 40 unit 09/19/24 21:00 09/19/24 21:10 Insulin Glargine (Lantus) 5 Unit/0.05 Ml (Per 5 Units) SC 10/19/24 20:59 40 unit HS BRUNO Administration Insulin Human Lispro 0 unit 09/19/24 21:00 09/20/24 09:15 Insulin Lispro (Admelog) 1 Unit/0.01 Ml Unit SC 10/19/24 20:59 1 unit ACHS BRUNO Administration Protocol Meclizine HCl 25 mg 09/20/24 09:00 09/20/24 09:15 Meclizine Hcl 25 Mg Tablet PO 10/20/24 08:59 25 mg DAILY BRUNO Administration Metoprolol Succinate 25 mg 09/19/24 21:00 09/19/24 21:10 Metoprolol Succinate Xl 25 Mg Tabcr PO 10/19/24 20:59 25 mg HS BRUNO Administration Plan Assessment Jacqui Guadarrama is 63 yr F with PMH of insulin-dependent type 2 diabetes, diabetic neuropathy, vertigo, hypertension, hyperlipidemia who is admitted for L ankle pain and hyperkalemia. #Left ankle pain DDx: Osteomyelitis, Cellulitis, Chronic osteoarthritis, loose body Endorses pain since past 2-3 months. Has not been evaluated by orthopedics outpatient. Has not taken any OTC pain meds, mostly has been icing ankle. X-ray foot shows severe osteopenia, old fractures at base of fifth metatarsal, no cortical bone destruction, old chip fracture off dorsal plantar surface of talus. L ankle slightly warm to palpitation ESR and CRP 70s and 2 respectively, elevated inflammatory markers On physical exam patient's foot does not appear to be infected at this time, however in the light of history of diabetes neuropathy and inflammatory markers we need to rule out infectious process Patient does say that she gets claustrophobic and will need some medicine for additional imaging Patient will not get contrast due to current AMADO Plan: ?Follow-up MRI without contrast, use Ativan 0.5 mg as needed ?Dr. Swanson consulted, appreciate recs ?Conservative pain management with Tylenol ?Follow-up CK #AMADO on CKD #Hyperkalemia Potassium 6.1 on admission, given albuterol 10 mg, total of 10 units regular insulin, Kayexalate 30, D50 amp, 80 mg IV Lasix x 1, patiromer Patient most likely experiencing hyperkalemia due to medication use of ibuprofen causing AMADO leading to hyperkalemia Pt sees Dr. Ann outpatient, Stage IIIA or B Plan: ? Avoid nephrotoxic agents ? Renally dose medicines 40 ? Trend with CMP ? Follow-up urine lytes and creatinine ? Follow-up renal ultrasound #History of type 2 insulin-dependent diabetes with associated neuropathy A1c 7.5 Plan: ? Lantus 40 units at bedtime ? Sliding scale insulin ? Hypoglycemic protocol in place ? Blood sugar checks with meals ? Carb low diet #Hx of Vertigo Chronic Plan: ? Continue home meclizine 25 mg daily #Hypertension #Hyperlipidemia Chronic LDL 81; Total 145 Plan: ? Resumed home metoprolol 25 XL ? Resumed home Lipitor 20 mg at bedtime #Health Maintenance Disposition: Telemetry DVT prophylaxis: Lovenox GI prophylaxis: Protonix Diet:Low carb CODE STATUS:DNR Patient seen and care discussed with my attending physician, Dr. Reuben Angela, PGY-1 Attending Provider Attestation/Addendum I have examined the patient, reviewed labs and imaging findings, discussed the case with the resident(s), and reviewed entered orders. I agree with the plan of care as outlined in this note, with these additional summaries/recommendations: Patient seen at bedside. She continues to endorse left foot pain and discomfort. Patient's left foot is warm to touch but there is no obvious cellulitis changes. Left foot x-ray revealed old fractures with old ununited fracture at the base of the fifth metatarsal and old chip fracture off the dorsal and plantar surface of the talus. 10 mm plantar bony calcaneal spur also noted. Given that patient is a diabetic and has previous fractures I am worried about the possibility of osteomyelitis. We will obtain MRI left foot to evaluate further. Patient's hyperkalemia has now resolved. Potassium 4.9 although we will continue to monitor. Etiology for hyperkalemia most likely secondary to underlying chronic kidney disease. CKD most likely secondary to diabetic nephropathy. We will hold SHIRIN/ARB for now. Continue insulin sliding scale for diabetes mellitus type 2. A1c 7.4%. Continue pain management as needed. Patient updated on the plan and in agreement. All questions answered to satisfaction. Dr. Reuben MD
--- NOTE | 2024-09-20 10:07 | XR_ITS ---
Examination: Retroperitoneal ultrasound, complete Technique: Multiple high resolution grayscale images of the retroperitoneum obtained, including kidneys and bladder. Exam date and time:September 20, 2024 1020 hours INDICATIONS: Acute renal insufficiency hyperkalemia on laboratory examination 2 days ago FINDINGS: Right kidney 11.7 cm cortex 1.8 cm Left kidney 14.1 cm cortex 1.9 cm Moderate renal parenchymal scar formation 5.3 cm septated cyst upper pole left kidney No hydronephrosis No bladder mass or bladder calculi Bladder prevoid volume 264 cc IMPRESSION: Bilateral renal cortical thinning Moderate bilateral renal parenchymal scar formation
--- NOTE | 2024-09-20 10:22 | XR_ITS ---
Examination: MRI left, without contrast Date and time of exam: September 20, 2024 1258 hours INDICATIONS: Redness swelling and pain involving the foot this week Technique: Multiple axial sagittal and coronal images of the left foot have been obtained with the Siemens high-resolution 1.5 Britni MRI scanner. Images obtained include T2-weighted fat-suppressed sagittal sections, TR 3500, TE 46, T2 weighted coronal fat suppressed images, TR 3050, TE 84, T2-weighted transverse fat suppressed images, TR 3260, TE 63, proton density transverse images, TR 4720 TE 46, and T1 weighted coronal images, TR 560, TE 13. Findings: Multiple areas of focal increased signal throughout all visualized bones of the ankle and feet consistent with reflex sympathetic dystrophy Moderate narrowing tibiotalar joint Significant thickening Achilles tendon Significant plantar fasciitis No occult fracture Moderate osteoarthritis tarsometatarsal joints and first metatarsophalangeal joint No bee cortical bone destruction No soft tissue abscess IMPRESSION: Reflex sympathetic dystrophy pattern Achilles tendinosis Plantar fasciitis No bee cortical bone obstruction Osteoarthritis as above
--- NOTE | 2024-09-20 10:29 | PC.SS ---
SS met with patient regarding her d/c plan.? Pt is alert/oriented.? Pt was admitted for Hyperkalemia, Left Ankle Pain.? Pt confirmed demographic and contact information is correct on facesheet.? Pt resides with her niece, Hazel.? Pt ambulates independently without assistance or DME.? Pt has 4 wheel with seat, rollator walker which she uses when needed.? Pt is ok with all ADLs.? Patient?s pharmacy of choice is [facility] [address] Pt named her sister, Elsa Juarez, phone# [phone] medical decision maker if she is unable.? SS provided verbal d/c options for home or SNF.? Patient?s choice is to return home upon d/c.? Pt states she is diabetic, has glucometer, and test strips.? Pt states she uses insulin injections for her diabetes.? Pt states she is not on dialysis.? Pt followed up with PCP last week. D/C plan:? Return home Next of Kin:? Elsa Juarez, sister, phone# [phone] PCP:? Dr. Cisco Gaona? Address:? Correct on facesheet
[2024-09-20] MEDS: LORazepam 2 MG/ML VIAL 0.5 MG IVP (12:21)
[2024-09-20] MEDS: PANTOPRAZOLE INJ 40 MG VIAL IV (12:21)
[2024-09-20 14:03] LABS: Creatine Kinase 49 U/L (34-171)
[2024-09-20] MEDS: ATORVASTATIN CALCIUM 10 MG TABLET 20 MG PO (20:41)
[2024-09-20] MEDS: METOPROLOL SUCCINATE XL 25 MG TABCR PO (20:41)
[2024-09-20] MEDS: INSULIN GLARGINE (Lantus) 5 UNIT/0.05 ML (PER 5 UNITS) 40 UNIT SC (20:52)
[2024-09-21] VITALS: BP 125/73; PULSE 73; RESP 13; TEMP 36; O2SAT 96
[2024-09-21 04:00] VITALS: BP 131/82; PULSE 72; PULSE 76; RESP 12; TEMP 35.9; O2SAT 97
[2024-09-21 05:43] VITALS: BMI 37.2
[2024-09-21 05:55] LABS: Basophils % (Auto) 1 % (0-2.5); Eosinophils # (Auto) 0.2 Thou/mm3 (0.0-0.5); Eosinophils % (Auto) 3 % (0-10); Hematocrit 32.3 % (36.0-46.0); Hemoglobin 10.7 g/dL (12.0-16.0); Immature Granulocytes % (Auto) 0 % (0-0); Immature Granulocytes Auto 0.01 Thou/mm3 (0.00-0.00); Lymphocytes # (Auto) 2.1 Thou/mm3 (1.0-4.8); Lymphocytes % (Auto) 33 % (10-50); Mean Corpuscular HGB Conc 33.1 g/dl (31.0-37.0); Mean Corpuscular Hemoglobin 30.2 pg (25.0-35.0); Mean Corpuscular Volume 91 fL (80-100); Monocytes # (Auto) 0.4 Thou/mm3 (0.0-0.8); Monocytes % (Auto) 7 % (0-12); Neutrophils # (Auto) 3.6 Thou/mm3 (1.8-7.7); Neutrophils % (Auto) 56 % (37-80); Nucleated Red Blood Cell % 0 /100 WBC (0); Platelet Count 223 Thou/mm3 (140-440); RDW Standard Deviation 45.1 fL (36.4-46.3); Red Blood Count 3.54 Miln/mm3 (4.00-5.20); White Blood Count 6.4 Thou/mm3 (3.6-11.0)
[2024-09-21 06:23] LABS: Alanine Aminotransferase 15 U/L (10-49); Albumin, Serum 3.7 gm/dL (3.4-4.8); Albumin/Globulin Ratio 1.1 (1.2-2.2); Alkaline Phosphatase 186 U/L (46-116); Anion Gap 9 (7-16); Aspartate Amino Transferase 16 U/L (0-34); BUN/Creatinine Ratio 27 Ratio (12-20); Bilirubin,Total 0.3 mg/dL (0.3-1.2); Blood Urea Nitrogen 30 mg/dL (9-23); Calcium 8.6 mg/dL (8.3-10.6); Calcium (Corrected) 8.8 mg/dL (8.5-10.1); Carbon Dioxide 23.5 mMol/L (20.0-31.0); Chloride 113 mMol/L (98-107); Creatinine (Component) 1.1 mg/dL (0.6-1.3); Estimated Creatinine Clearance 60.4 mL/min (>60); Globulin 3.4 gm/dL (2.3-3.5); Glucose 123 mg/dL (74-106); Osmolality,Calculated 295 (275-295); Potassium 4.7 mMol/L (3.4-5.1); Sodium 145 mMol/L (136-145); Total Protein 7.1 gm/dL (5.7-8.2); eGFR 57 See Note
[2024-09-21 07:38] VITALS: RESP 18; RESP 96
[2024-09-21 08:00] VITALS: BP 127/83; PULSE 73; PULSE 74; RESP 18; TEMP 36.1; O2SAT 94
[2024-09-21] MEDS: ENOXAPARIN SOD INJ 40 MG/0.4 ML SYRINGE SC (08:29)
[2024-09-21] MEDS: PANTOPRAZOLE INJ 40 MG VIAL IV (08:29)
[2024-09-21] MEDS: GABAPENTIN 100 MG CAPSULE 200 MG PO (08:30)
[2024-09-21] MEDS: MECLIZINE HCL 25 MG TABLET PO (08:30)
[2024-09-21] MEDS: INSULIN LISPRO (AdmeLOG) 1 UNIT/0.01 ML UNIT SC (11:43)
[2024-09-21 12:00] VITALS: PULSE 87
--- NOTE | 2024-09-21 12:03 | ESDS_ITS ---
<Statement entered by Joon Wright MD - 09/22/24 06:52> Patient was seen and examined at bedside. I agree on discharge plan of this patient. - Patient's plan and care discussed with my attending, Dr. Reuben Wright MD Internal Medicine PGY-2 Planned Discharge Date 09/21/24 DS: Providers Provider Date of admission: 09/19/24 19:43 Primary care physician: Cisco Gaona PA-C Admitting Provider: Katlyn Herrera MD Attending Provider on Admission: Katlyn Herrera MD Consults: 09/19/24 19:55 Consult to Orthopedic Routine Comment: LL ankle pain 3 months, old fracture present Consulting Provider: Alfie Fernandez 09/21/24 09:57 Referral Physical Therapy Stat Comment: Physician Instructions: Instructions: for d/c Attending Provider on DC: Viet Alexis MD Discharging Provider: Viet Alexis MD DS: Diagnosis Problem List Completed Was Problem List Reviewed/Reconciled?: Yes Hospital Course Hospital Course Hospital course: Jacqui Guadarrama is 63 yr F with PMHx of insulin-dependent type 2 diabetes, diabetic neuropathy, vertigo, hypertension, hyperlipidemia who was admitted for AMADO, hyperkalemia and left ankle pain. Patient had been experiencing left ankle pain for some time and had possibly twisted it prior to arrival and had been taking ibuprofen 400 mg a couple of times a day for some period of time. Patient arrived to the ED with unremarkable vitals, CMP was significant for hyperkalemia with potassium of 6.1, BUN/creatinine of 41 and 1.7 respectively, glucose 172, ESR in the 70s, CRP 2.0. X-ray of the left foot shows severe osteopenia, old fractures at the base of fifth metatarsal, no cortical bone destruction, volar chip fracture off dorsal plantar surface left talus. Patient was given D50, insulin, Veltassa and fluids in the ED which brought down her hyperkalemia. Orthopedic surgery was consulted, Dr. Fernandez, medicine was consulted for admission of patient. In the setting of inflammatory markers being elevated, osteomyelitis was on the differential and was eventually ruled out after MRI of foot had been ordered and had showed CIDP, Achilles tendinitis and plantar fasciitis. Patient was then recommended to follow-up with her orthopedic doctor, podiatry and will need to begin physical therapy for her CIDP. Patient is at high risk for further fractures with condition of CIDP and this was discussed with her at great length including her orthopedic surgeon discussing this with her. It is highly recommended for patient to continue with outpatient follow-up and physical therapy. While patient was on the floors, patient was treated for her AMADO with gentle IV fluids. Patient's creatinine had come down to 1.1, and patient was recommended to follow-up with her ophthalmic tech, Dr. Ann she states she has a follow-up appointment on September 23. For her hyperkalemia it was likely related to ibuprofen use in which we had recommended her to stop taking that and also this would be beneficial to her kidney as well. Discharge Instructions: Follow up with PCP within one week Follow up with Orthopedic Surgeon, Dr. Fernandez within two weeks Follow up with podiatry Follow up with your kidney doctor, Dr. Ann within one week You will need to begin physical therapy outpatient Take tylenol as needed for pain management, avoid NSAIDs including Motrin (Ibuprofen), Aleeve (Naproxen) Return to ER if symptoms worsen #Chronic inflammatory demyelinating Polyneuropathy #AMADO on CKD #Hyperkalemia #History of type 2 insulin-dependent diabetes with associated neuropathy #Hypertension #Hyperlipidemia Discharge summary was reviewed with my attending Dr. Alexis and my senior resident, Dr. Kyle Angela, PGY-1 Time Spent with Patient Time attestation: Total time spent providing and/or coordinating discharge services: Time spent: Greater than 30 minutes Exam Vital Signs Temp Pulse Resp BP Pulse Ox O2 Del Method FiO2 96.9 F 74 18 127/83 94 L Room Air 80 09/21/24 08:00 09/21/24 08:00 09/21/24 08:00 09/21/24 08:00 09/21/24 08:00 09/21/24 08:00 09/21/24 07:38 Narrative Exam General: AAOx3, NAD, obese female HEENT: Moist mucous membranes, conjunctiva clear, EOMI, PERRLA, Cardiovascular: S1, S2, radial pulses +2 bilat, RRR Pulmonary: CTAB bilat no cough, no wheezing GI: No tenderness to light or deep palpitation, no guarding, rigidity, rebound tenderness or distension Extremities: No presence of trace or pitting edema in lower extremities bilaterally, dorsalis pedis pulses +2 bilaterally MSK: L foot slight more warm to touch compared to right foot, no obvious ulceration or open wound at this time. 4/5 ROM of left foot. No rash present on left foot. Neuro: AAOx3, no focal motor or sensory deficits in the UE or LE bilat Psych: Good judgement, thought and behavior. Cooperative Discharge Plan Plan Patient Disposition: HOME (Self Care) Patient condition on transfer: Stable and Benefits outweigh risks Care Plan Goals: Discharge Instructions: Follow up with PCP within one week Follow up with Orthopedic Surgeon, Dr. Fernandez within two weeks Follow up with podiatry Follow up with your kidney doctor, Dr. Ann within one week You will need to begin physical therapy outpatient Take tylenol as needed for pain management, avoid NSAIDs including Motrin (Ibuprofen), Aleeve (Naproxen) Return to ER if symptoms worsen Prescriptions/Referrals Prescriptions/Med Rec: Continued gabapentin 600 mg Tablet 600 mg PO BID allopurinol 100 mg Tablet 100 mg PO BID meclizine 25 mg Tablet 25 mg PO BID PRN (Reason: Dizziness) metformin 1,000 mg Tablet 1,000 mg PO BID Basaglar KwikPen U-100 Insulin 100 unit/mL (3 mL) Insulin Pen 50 unit SUBCUT BID promethazine-DM 6.25-15 mg/5 mL Syrup 5 ml PO Q4HR PRN (Reason: Cough) Qty: 300 0RF acetaminophen [Mapap (acetaminophen)] 325 mg Tablet 650 mg PO Q6H PRN (Reason: Fever >101.5) Qty: 30 0RF hydrocodone-acetaminophen 5-325 mg tablet 1 tab PO BID MDD 10mg PRN (Reason: pain) Qty: 10 0RF Discontinued dexamethasone 6 mg tablet 6 mg PO QDAY Qty: 8 0RF sulfamethoxazole-trimethoprim [Bactrim DS] 800-160 mg tablet 1 tab PO BID Qty: 14 0RF Referrals: Cisco Gaona PA-C [Primary Care Provider] - Patient/Caregiver Discharge Instructions Discharge Activity: activity as tolerated Other Discharge Activity Instructions:: Follow up with PCP within one week Follow up with Orthopedic Surgeon, Dr. Fernandez within two weeks Follow up with podiatry Follow up with your kidney doctor, Dr. Ann within one week Stop Using Bactrim as it may cause worsening of your hyperkalemia and acute kidney injury You will need to begin physical therapy outpatient Take tylenol as needed for pain management, avoid NSAIDs including Motrin (Ibuprofen), Aleeve (Naproxen) Return to ER if symptoms worsen Education Materials: Diabetes and Kidney Disease Print Language: Latvian Stand Alone Forms: Jennifer Award Info., Patient Portal Info Letter Discharge Order Discharge Orders: Discharge (Routine); Ordered 09/21/24 Ordered By: Enmanuel Angela Quality Discharge Quality Measures VTE prophylaxis (Heparin) Attestestation MD Attestation I have examined the patient, reviewed labs and imaging findings, discussed the case with the resident(s), and reviewed entered orders. I agree with the plan of care as outlined in this note. Time Spent: [address] Reuben MD
== END 2024-09-21 13:45 | disposition home or self-care (01) | DRG 641 ==
LOC: SERX 18:07 → SERHOLD 20:15 → S2NX 23:14
PROVIDERS: Nurse Practitioner Family; Admitting Provider Student in an Organized Health Care Education/Training Program; Emergency Provider Emergency Medicine; PCP Physician Assistant; Visit Provider Student in an Organized Health Care Education/Training Program
DX: E87.5 Hyperkalemia (principal); N17.9 Acute kidney failure, unspecified; G61.81 Chronic inflammatory demyelinating polyneuritis; E11.40 Type 2 diabetes mellitus with diabetic neuropathy, unspecified; K21.9 Gastro-esophageal reflux disease without esophagitis; M10.9 Gout, unspecified; E78.5 Hyperlipidemia, unspecified; N18.9 Chronic kidney disease, unspecified; E11.22 Type 2 diabetes mellitus with diabetic chronic kidney disease; S90.02XA Contusion of left ankle, initial encounter; I12.9 Hypertensive chronic kidney disease with stage 1 through stage 4 chronic kidney disease, or unspecified chronic kidney disease; X50.1XXA Overexertion from prolonged static or awkward postures, initial encounter; M85.80 Other specified disorders of bone density and structure, unspecified site; M25.572 Pain in left ankle and joints of left foot; Z66 Do not resuscitate; Z79.4 Long term (current) use of insulin; Z79.84 Long term (current) use of oral hypoglycemic drugs; Z79.899 Other long term (current) drug therapy; T39.315A Adverse effect of propionic acid derivatives, initial encounter
CPT/HCPCS: 36415; 73630; 73718; 76770; 80048; 80053; 80061; 82043; 82436; 82550; 82570; 83036; 83605; 83735; 84100; 84133; 84145; 84300; 84443; 85025; 85652; 86140; 87040; 94644; 96360; 96372; 97161; 99285; J1650; J1815; J1938; J2060; J2470; J7030; A9270; J7609

== ENCOUNTER → 2024-10-18 | Outpatient (CLI) | payer MEDICARE, MEDICAID, SELFPAY ==
--- NOTE | 2024-10-18 10:37 | XR_ITS ---
Examination: Knee, left , 3 views Technique: Knee AP, lateral, oblique 3 views Date and time of exam: October 18, 2024 1145 hours INDICATIONS: Injury to the knee one month ago with persistent pain. FINDINGS: Severe osteopenia No acute fracture No dislocation IMPRESSION: No acute fracture
== END | disposition home or self-care (01) ==
LOC: SDIM 10:28
PROVIDERS: PCP Physician Assistant; Referring Provider Orthopaedic Surgery; Visit Provider Orthopaedic Surgery
DX: M25.562 Pain in left knee (principal); S89.92XS Unspecified injury of left lower leg, sequela; X58.XXXS Exposure to other specified factors, sequela
CPT/HCPCS: 73562

== ENCOUNTER 2024-11-05 13:17 | Emergency (ER) | payer MEDICARE, MEDICAID, SELFPAY ==
[2024-11-05 13:18] VITALS: BMI 36.8
[2024-11-05 13:38] VITALS: BP 150/82; PULSE 91; RESP 16; TEMP 37; O2SAT 96
--- NOTE | 2024-11-05 13:45 | XR_ITS ---
Examination: Duplex scan of the lower extremity, unilateral left complete Date and time of exam: November 05, 2024 1407 hours INDICATIONS: Left ankle swelling onset today Technique: Duplex scan of the extremity veins using B-mode/grayscale imaging and Doppler spectral analysis and color flow Attention is directed to internal echogenicity, compression and augmentation involving these veins, color flow assessment, spectral analysis Findings: Major deep venous structures in the extremity demonstrate normal course and caliber. There is no evidence of deep vein thrombosis. Normal color flow and spectral analysis Impression: Negative for DVT..
--- NOTE | 2024-11-05 13:45 | XR_ITS ---
Examination: Foot, left, 3 views Technique: AP, oblique, lateral views foot, 3 views Date and time of exam: November 05, 2024 1352 hours INDICATIONS: Left foot swelling and pain this week FINDINGS: Large plantar bony calcaneal spur Please see the ankle report Tarsal bones metatarsals and phalanges appear intact IMPRESSION: Severe osteopenia Tarsal bones metatarsals digits appear intact
--- NOTE | 2024-11-05 13:45 | XR_ITS ---
EXAMINATION: Ankle, left 3 views . Technique: Ankle AP, oblique, lateral 3 views Date and time of exam: November 05, 2024 1352 hours INDICATIONS: Patient fell today with into the ankle, ankle pain. FINDINGS: Severe osteopenia Acute fractures distal fibular shaft The fibular tip and medial malleolus No ankle dislocation IMPRESSION: Acute bimalleolar fractures
--- NOTE | 2024-11-05 13:46 | PD.EDRME ---
Rapid Medical Screening Exam RME Arrival date/time: 11/05/24 13:17 64-year-old female presents to the Emergency Department today for complaints of swelling and pain to left ankle and foot for approximately 1 month Chief Complaint: Extremity Injury, Lower Time Seen by Provider: 11/05/24 13:19 Vital signs: Vital Signs Temperature 98.6 F 11/05/24 13:38 Pulse Rate 91 11/05/24 13:38 Respiratory Rate 16 11/05/24 13:38 Blood Pressure 150/82 H 11/05/24 13:38 Pulse Oximetry (%) 96 11/05/24 13:38 Oxygen Delivery Method Room Air 11/05/24 13:38
[2024-11-05 14:37] LABS: Basophils % (Auto) 0 % (0-2.5); Eosinophils # (Auto) 0.2 Thou/mm3 (0.0-0.5); Eosinophils % (Auto) 2 % (0-10); Hematocrit 33.9 % (36.0-46.0); Hemoglobin 11.1 g/dL (12.0-16.0); Immature Granulocytes % (Auto) 0 % (0-0); Immature Granulocytes Auto 0.03 Thou/mm3 (0.00-0.00); Lymphocytes # (Auto) 2.2 Thou/mm3 (1.0-4.8); Lymphocytes % (Auto) 21 % (10-50); Mean Corpuscular HGB Conc 32.7 g/dl (31.0-37.0); Mean Corpuscular Hemoglobin 30.3 pg (25.0-35.0); Mean Corpuscular Volume 93 fL (80-100); Monocytes # (Auto) 0.5 Thou/mm3 (0.0-0.8); Monocytes % (Auto) 5 % (0-12); Neutrophils # (Auto) 7.7 Thou/mm3 (1.8-7.7); Neutrophils % (Auto) 72 % (37-80); Nucleated Red Blood Cell % 0 /100 WBC (0); Platelet Count 268 Thou/mm3 (140-440); Red Blood Count 3.66 Miln/mm3 (4.00-5.20); White Blood Count 10.6 Thou/mm3 (3.6-11.0)
[2024-11-05 14:50] LABS: INR 1.1 (0.9-1.3); Partial Thromboplastin Time 29.7 Seconds (22.0-36.0); Prothrombin Time 11.5 Seconds (9.0-12.2)
[2024-11-05 15:05] LABS: Alanine Aminotransferase 10 U/L (10-49); Albumin/Globulin Ratio 1.1 (1.2-2.2); Alkaline Phosphatase 180 U/L (46-116); Anion Gap 12 (7-16); Aspartate Amino Transferase 17 U/L (0-34); BUN/Creatinine Ratio 21 Ratio (12-20); Bilirubin,Total 0.3 mg/dL (0.3-1.2); Blood Urea Nitrogen 29 mg/dL (9-23); C-Reactive Protein 3.5 mg/dL (0.0-0.9); Chloride 109 mMol/L (98-107); Creatinine (Component) 1.4 mg/dL (0.6-1.3); Estimated Creatinine Clearance 46.6 mL/min (>60); Globulin 3.5 gm/dL (2.3-3.5); Glucose 91 mg/dL (74-106); Osmolality,Calculated 288 (275-295); Potassium 4.4 mMol/L (3.4-5.1); Procalcitonin 0.08 ng/ml (0.0-0.49); Sodium 142 mMol/L (136-145); Total Protein 7.5 gm/dL (5.7-8.2); eGFR 42 See Note
[2024-11-05 15:11] LABS: Sed Rate (ESR) 108 mm/hr (0-30)
[2024-11-05 18:27] VITALS: BP 146/97; PULSE 95; RESP 16; TEMP 37; O2SAT 95
--- NOTE | 2024-11-05 18:31 | PC.NURSE ---
Patient from [facility] and taken to room 17 with c/o left foot pain and swelling x 1 month, patient denies injury, patient states it is painful when she walks, however, denies pain at this time, lying down in gurney. CMS intact, + nisreen. equal pulses, chart up to be seen by er provider, call light within reach.
--- NOTE | 2024-11-05 19:38 | XR_ITS ---
Examination: CT left lower leg with intravenous contrast, 2-D sagittal reconstructions. 2-D coronal reconstructions. 3-D reconstructions. Date and time of exam:November 05, 2024 2102 hours INDICATIONS: Redness swelling and pain involving the ankle and lower leg worse this week CTDI: vol (mGy):5.36 DLP: (mGycm):220 Technique: Multiple 1.25 mm axial sections of the left lower leg post intravenous administration 60 cc Isovue-370 have been obtained. 2-D sagittal and coronal reconstructions have been obtained. 3-D reconstructions have been obtained. Low dose protocols were performed. One or more of the following dose reduction techniques were used; automated exposure control, adjustment of the mA and/or KV according to patient size, use of iterative reconstruction technique. Findings: Diffuse edema in the subcutaneous fatty tissue lower leg more severe at the ankle Acute comminuted fractures distal tibia including to the medial malleolus with at least 12 mm offset of the major medial malleolar fracture fragment The fractures distal tibia extending to the articulating surface of the distal tibia Also comminuted fractures anterior and lateral margin of the talus with marked displacement of bone fragments, coronal image 79 Comminuted fracture is posterior inferior cuboid Cuneiforms and metatarsals appear intact IMPRESSION: Marked cellulitis pattern Acute comminuted fractures distal tibia including displaced medial malleolar fracture. Acute comminuted displaced fractures posterior lateral margin of the talus Acute comminuted fractures posterior inferior cuboid
--- NOTE | 2024-11-05 19:38 | PD.EDEXREM ---
ED Extremity Problem RME/HPI General Chief complaint: Extremity Injury, Lower Stated complaint: HEMATOMA L) FOOT/ANKLE X 1 MO Time Seen by Provider: 11/05/24 13:19 Arrival date/time: 11/05/24 13:17 RME / HPI RME / HPI Narrative: 11/05/24 13:17 64-year-old female presents to the Emergency Department today for complaints of swelling and pain to left ankle and foot for approximately [address] CROW MAIN ED EVALUATION: 64 y/o female with Hx of Arthritis, Gout, Diabetes Mellitus Type 2, and Kidney Failure presents to ED c/o left lower leg pain and swelling x 1 month. Denies any injury. Also denies history of heart failure. No other concerns or complaints expressed at this time. States that she has been on a course of antibiotics for the swelling in her lower extremity however despite this the swelling, warmth and pain in her left lower extremity stay worse. Patient does not have a supervisor purification. Related Data Home Medications ?Medication ?Instructions ?Recorded ?Confirmed allopurinol 100 mg tablet 100 mg PO BID 05/15/20 05/15/20 gabapentin 600 mg tablet 600 mg PO BID 05/15/20 05/15/20 insulin glargine 100 unit/mL (3 50 unit subcut BID 05/15/20 05/15/20 mL) subcutaneous pen (Basaglar KwikPen U-100 Insulin) meclizine 25 mg tablet 25 mg PO BID PRN Dizziness 05/15/20 05/15/20 metformin 1,000 mg tablet 1,000 mg PO BID 05/15/20 05/15/20 Previous Rx's ?Medication ?Instructions ?Recorded acetaminophen 325 mg tablet (Mapap 650 mg (2 x 325 mg) PO Q6H PRN 05/16/20 (acetaminophen)) Fever >101.5 #30 tabs promethazine-DM 6.25 mg-15 mg/5 mL 5 ml PO Q4HR PRN Cough #300 mL 05/16/20 oral syrup hydrocodone 5 mg-acetaminophen 325 1 tab PO BID PRN pain #10 tabs 25 mg tablet Allergies Allergy/AdvReac Type Severity Reaction Status Date / Time No Known Allergies Allergy Verified 11/05/24 13:20 Review of Systems Review of Systems Systems Reviewed: All systems reviewed, normal except as documented Past Medical History Past Medical History CARDIAC: Positive Cardiac Disorders, Hypercholesterolemia and Hypertension GASTROINTESTINAL: Positive Gastrointestinal Disorders, Gastroesophageal Reflux Disease and Obesity REPRODUCTIVE: Positive Endometriosis and Previous Pregnancies MUSCULOSKELETAL: Positive Musculoskeletal Disorders, Arthritis and Gout ENDOCRINE: Positive Endocrine Disorders and Diabetes Mellitus Type 2 HEMATOLOGIC: Positive Anemia OTHER HISTORY: Positive Shingles and Blood Transfusions ED Exam Narrative Physical exam: GEN. APPEARANCE: The patient is alert awake oriented X-3 in no distress, lying down comfortably, does not look ill/toxic. Patient has good eye contact. Patient is cooperative. VITALS: All vitals were reviewed and the pulse ox is % on room air which is normal according to my interpretation. HEENT: Normocephalic, atraumatic. Pupils are equal and reactive. Oral mucosa is moist. Patent Nares NECK: Supple, nontender, no thyromegaly, no meningismus, no JVD CHEST: Symmetrical, atraumatic, and with equal expansion , Nontender on palpation no deformity and no crepitus. CARDIOVASCULAR: Heart regular rhythm no murmur or gallop rub or extra beats. LUNGS: Clear to auscultation bilaterally with symmetrical chest rise. No laboring tachypnea or wheezing. No intercostal subcostal retraction. No rales and no rhonchi. ABDOMEN: Soft, flat, nontender to palpation, no guarding or rebound tenderness. There are no abnormal masses palpated. Active and normal bowel sounds. EXTREMITIES: Tenderness to palpation to the left lower extremity, edema redness and swelling from mid lubin to the lower extremity, 2+ DP pulse. No cyanosis. SKIN: Warm and dry, NEURO: Patient is TODD x 4, Cranial nerves II through XII grossly intact. There is no focal neurologic deficits noted. GCS is 15, PNS and GEOPHYSICAL PARTY CHIEF appear grossly intact. PSYCHIATRIC: Patient is in normal mood and affect. Course Course Course Narrative: 0045: Dr. Colunga, Podiatry specialist from [facility], recommends contacting [facility] [place] as they may be able to expedite treatment. Charcot foot may not be an emergency, but charcot ankle is. 0104: [facility] was not able to contact their Rotor Blade Installer. If they do not call back in 1.5 hour, we will call [facility] back for transfer. 0410: [facility] called back, Dr. Colunga excepted patient for transfer. Updated patient, patient hemodynamically stable not in distress. Patient amenable to transfer. Patient confirmed that she does not have a supervisor purification. Patient did receive broad-spectrum antibiotics here in the emergency department. Quality Measures none Orders Category Date Time Status CT Screening NOW Care 11/05/24 19:[address] lower leg LT w con Stat Exams 11/05/24 19:38 Completed US venous doppler LE LT Stat Exams 11/05/24 13:45 Completed XR ankle comp LT min 3V Stat Exams 11/05/24 13:45 Completed XR foot comp LT min 3V Stat Exams 11/05/24 13:45 Completed Blood Culture (Lab) Stat Lab 11/05/24 14:21 Received CBC Stat Lab 11/05/24 14:26 Completed CMP [Comprehensive Metabolic Panel] Stat Lab 11/05/24 14:26 Completed CRP [C-Reactive Protein] Stat Lab 11/05/24 14:26 Completed ESR [Sed Rate (ESR)] Stat Lab 11/05/24 14:26 Completed Lactic Acid [Lactate (Lactic Acid)] Stat Lab 11/05/24 14:26 Completed PT [Prothrombin Time with INR] Stat Lab 11/05/24 14:26 Completed PTT [Partial Thromboplastin Time] Stat Lab 11/05/24 14:26 Completed Procalcitonin Stat Lab 11/05/24 14:26 Completed Piper/Tazo Inj [Zosyn Inj] 4.5 gm Med 11/06/24 01:53 Discontinued Sodium Chloride 0.9% (Pop) [NS 0.9% mini bag] 100 ml IV X1 Vancomycin Pharmacy to Dose Med 11/06/24 09:00 Pending 1 each IV QDAY Vancomycin/Ns 1 gm Ivpb 200 ml Med 11/05/24 22:45 Discontinued IV Q100M Vital Signs Vital signs: Vital Signs Temperature 98.6 F 11/05/24 13:38 Pulse Rate 91 11/05/24 13:38 Respiratory Rate 16 11/05/24 13:38 Blood Pressure 150/82 H 11/05/24 13:38 Pulse Oximetry (%) 96 11/05/24 13:38 Oxygen Delivery Method Room Air 11/05/24 13:38 Extremity Problem MDM Narrative MDM Narrative:: Scribe Attestation: ISamantha, am scribing for and in the presence of Dr. Crow. Provider Notation: Although this document has been carefully reviewed, there may still be some phonetic and other typographical errors.? These errors are purely grammatical due to imperfections in the software program and should not be construed in any way to? compromise the substance of the patient's medical care during this visit. Patient is a 64-year-old female with an emergency primary concerns for swelling to her left lower extremity. Vital signs on exam as documented above. Concern for DVT, deep space infection, cellulitis, fracture, dislocation among others. Ordered labs, x-ray, ultrasound of the lower extremity as well as CT of the lower extremity with contrast. Labs without any acute significant hematologic or significant metabolic abnormality however does have elevated inflammatory markers. X-ray did not identify any fracture of the ankle ultrasound of the lower extremity without DVT, CT of the lower extremity did identify significant cellulitis, no deep space lower extremity infection, did identify multiple fractures of the ankle. Initially orthopedic surgery was consulted here which was concern for Charcot foot, no emergent surgical intervention was recommended. Initially attempted to admit the patient to the hospitalist service however given patient with worsening swelling of the lower extremity, warmth redness cellulitis and recent course of antibiotics, concern that patient may develop an abscess of the lower extremity at which point she would need podiatry or orthopedic surgery to help with management. We do not have orthopedic surgery available until a week from now. Given this requested that we transfer the patient for higher level of care. We consulted Dr. Colunga at [facility], discussed patient's injuries to her foot as well as concerns from the hospitalist. He is concerned that patient actually has Charcot ankle which is a surgical emergency. He kindly accepted patient for transfer. Patient data External records reviewed:: [facility] previous records (Reviewed prior ED records from 09/21/24. Patient was seen for Chronic kidney insufficiency.) Clinical information provided by:: patient Social determinants that could affect healthcare access:: none Patient has the following chronic illnesses:: Hypercholesterolemia, Hypertension, Gastroesophageal Reflux Disease, Obesity, Endometriosis, Arthritis, Gout, and Diabetes Mellitus Type 2 How is presenting disease/condition affected by chronic disease/condition?: exacerbated by Evaluation data The following diagnostics were reviewed and interpreted by me:: lab results and radiology exam(s) Lab and/or radiology exams considered but not ordered:: None Interpretation Summary: RADIOLOGY Lower Extremity CT: Findings: Diffuse edema in the subcutaneous fatty tissue lower leg more severe at the ankle Acute comminuted fractures distal tibia including to the medial malleolus with at least 12 mm offset of the major medial malleolar fracture fragment The fractures distal tibia extending to the articulating surface of the distal tibia Also comminuted fractures anterior and lateral margin of the talus with marked displacement of bone fragments, coronal image 79 Comminuted fracture is posterior inferior cuboid Cuneiforms and metatarsals appear intact IMPRESSION: Marked cellulitis pattern Acute comminuted fractures distal tibia including displaced medial malleolar fracture. Acute comminuted displaced fractures posterior lateral margin of the talus Acute comminuted fractures posterior inferior cuboid Venous Doppler Study: Findings: Major deep venous structures in the extremity demonstrate normal course and caliber. There is no evidence of deep vein thrombosis. Normal color flow and spectral analysis Impression: Negative for DVT. Foot X-Ray: FINDINGS: Large plantar bony calcaneal spur Please see the ankle report Tarsal bones metatarsals and phalanges appear intact IMPRESSION: Severe osteopenia Tarsal bones metatarsals digits appear intact Ankle X-Ray: FINDINGS: Severe osteopenia Acute fractures distal fibular shaft The fibular tip and medial malleolus No ankle dislocation IMPRESSION: Acute bimalleolar fractures Medications / Prescriptions Medications or Prescriptions considered but not ordered:: None Medication administrations:: Medication Administration History Pharmacy Consult (Vancomycin Pharmacy To Dose 1 Each Each) 1 each IV QDAY [facility] Stop: 12/06/24 08:59 Discontinued Medications Vancomycin/Sodium Chloride (Vancomycin/Ns 1 Gm Ivpb) 200 mls @ 120 mls/hr IV Q100M [facility]UNO Stop: 11/06/24 02:04 Last Admin: 11/06/24 02:07 Dose: 120 mls/hr Documented By: Infusion: 11/06/24 01:07 Dose: Infused Documented By: Admin: 11/05/24 23:24 Dose: 120 mls/hr Documented By: DIOMEDES Piperacillin Sod/Tazobactam (Sod 4.5 gm/ Sodium Chloride) 100 mls @ 200 mls/hr IV X1 ONE Stop: 11/06/24 02:22 Last Admin: 11/06/24 04:03 Dose: 200 mls/hr Documented By: DIOMEDES See above if any Consultations Consultation(s) initiated? (list below): Yes Consultation #1 (Physician, Specialty, Details): Dr. Red made aware of the patient?s HPI, PMHx, lab and/or radiology results. Discussed treatment plan. Advises patient see a Rotor Blade Installer and treat here with antibiotics. Will consult an admission to the hospitalist. Time: : Consultation #2 (Physician, Specialty, Details): Dr. Blackburn made aware of the patient?s HPI, PMHx, lab and/or radiology results. Treatment plan was discussed. Will admit for further evaluation and management. Accepts patient for admission. Time: :25 Consultation #3 (Physician, Specialty, Details): Spoke with Hospitalist team, informed me that we will no have Ortho coverage starting tomorrow and recommends a transfer to another facility with Ortho capabilities and a higher level of care in the event the infection progresses. Time: 23:37 Diagnosis Extremity Problem Differential Diagnosis: gout, cellulitis, superficial thrombophlebitis, deep venous thrombosis of upper extremity, lower extremity edema, deep vein thrombosis of lower extremity and other (Compartment syndrome, Fracture) Most likely diagnosis given after review of the tests above:: Left lower extremity edema, Acute on chronic kidney failure, Osteopenia, Charcot foot Admission Indicated Admission indicated?: not indicated Explain why admission is indicated or not indicated:: Patient will be transferred to [facility]. Admission Request Was there a request for admission?: Yes Admission Attestation Admission request attestation: Discussed case with [] from Hospitalist service regarding admission. Discussed patients ED course, exam findings, labs, and radiology results. The Hospitalist [agrees,declines] to accept the patient for admission. Disposition Plan Disposition Plan: Transfer Critical Care Time Critical Care Time Critical Care Time: Yes Total Critical Care Time (min.): 45 Attestation: The high probability of sudden, clinically significant deterioration in the patient?s condition required the highest level of my preparedness to intervene urgently. The services I provided to this patient were to treat and/or prevent clinically significant deterioration. Services included the following: chart data review, reviewing nursing notes and/or old charts, documentation time, excellence consultant collaboration regarding findings and treatment options, medication orders and management, direct patient care, vital sign assessments and ordering, interpreting and reviewing diagnostic studies and lab tests. Aggregate critical care time includes only time during which I was engaged in work directly related to the patient?s care, as described above, whether at bedside or elsewhere in the Emergency Department. It did not include time spent performing other reported procedures or the services of residents, students, nurses or physician assistants. Discharge Plan Plan Facility Pt Being Transferred to: [facility] Prescriptions/Referrals Prescriptions/Med Rec: No Action gabapentin 600 mg Tablet 600 mg PO BID allopurinol 100 mg Tablet 100 mg PO BID meclizine 25 mg Tablet 25 mg PO BID PRN (Reason: Dizziness) metformin 1,000 mg Tablet 1,000 mg PO BID Basaglar KwikPen U-100 Insulin 100 unit/mL (3 mL) Insulin Pen 50 unit SUBCUT BID promethazine-DM 6.25-15 mg/5 mL Syrup 5 ml PO Q4HR PRN (Reason: Cough) Qty: 300 0RF acetaminophen [Mapap (acetaminophen)] 325 mg Tablet 650 mg PO Q6H PRN (Reason: Fever >101.5) Qty: 30 0RF hydrocodone-acetaminophen 5-325 mg tablet 1 tab PO BID MDD 10mg PRN (Reason: pain) Qty: 10 0RF Referrals: Cisco Gaona PA-C [Primary Care Provider] - In 1 week Problem List Clinical Impression: Edema of left lower leg, Acute on chronic kidney failure, Osteopenia, Charcot joint of left ankle Patient/Caregiver Discharge Instructions Print Language: Stateless
[2024-11-05] MEDS: VANCOMYCIN/NS 1 GM IVPB 200 ML IV (23:24)
[2024-11-05 23:25] VITALS: BP 142/68; PULSE 92; RESP 16; O2SAT 99
--- NOTE | 2024-11-06 00:28 | PC.NURSE ---
Spoke to Kristin at transfer center for [facility], stated they do have ortho. Will fax over the paper work, imaging report and face sheet. She stated she will call back to speak to MD Haider
[2024-11-06] MEDS: VANCOMYCIN/NS 1 GM IVPB 200 ML IV (02:07)
[2024-11-06 02:11] VITALS: BP 133/94; PULSE 87; RESP 16; TEMP 37.3; O2SAT 95
--- NOTE | 2024-11-06 03:23 | PC.NURSE ---
Derek was contacted regarding transfer they stated they were waiting to get insurance verification and had not got ahold of Dr Garrido who is the barrel line operator commissioning editor.
[2024-11-06 04:00] VITALS: BP 153/91; PULSE 78; RESP 18; TEMP 37.2; O2SAT 100
[2024-11-06] MEDS: PIPER/TAZO INJ 4.5 GM in SODIUM CHLORIDE 0.9% (POP) 100 ML IV (04:03)
--- NOTE | 2024-11-06 04:06 | PC.NURSE ---
0405, ACCCEPTED TO [facility] FOR PODIATRY, BY , ER TO ER , REPORT #[id number] TO CHARGE [facility] , SPOKE TO NICKIE
--- NOTE | 2024-11-06 05:30 | PC.NURSE ---
Spoke to Kristi from [facility] and report was given all questions answered.
[2024-11-06 05:32] VITALS: BP 142/67; PULSE 78; RESP 19; TEMP 37.2; O2SAT 99
== END 2024-11-06 05:33 | disposition short-term general hospital (02) ==
PROVIDERS: Nurse Practitioner Primary Care; Emergency Provider Emergency Medicine; PCP Physician Assistant
DX: S82.832A Other fracture of upper and lower end of left fibula, initial encounter for closed fracture (principal); S82.52XA Displaced fracture of medial malleolus of left tibia, initial encounter for closed fracture; X58.XXXA Exposure to other specified factors, initial encounter; N17.9 Acute kidney failure, unspecified; N18.9 Chronic kidney disease, unspecified; M14.672 Charcot's joint, left ankle and foot; E11.22 Type 2 diabetes mellitus with diabetic chronic kidney disease; M85.872 Other specified disorders of bone density and structure, left ankle and foot; M77.32 Calcaneal spur, left foot; M10.9 Gout, unspecified
CPT/HCPCS: 36415; 73610; 73630; 73701; 80053; 83605; 84145; 85025; 85610; 85652; 85730; 86140; 87040; 93971; 96365; 96366; 96367; 99285; A4649; J2543; J3370; Q9967